=== PATIENT | female | born 1940 | race Caucasian/White ===

== ENCOUNTER 2018-07-28 10:57 | Inpatient (IN) | payer MEDICARE, BC ==
[2018-07-28 11:51] LABS: #Lymphocytes 0.6 thou/uL (1.20-3.40); #Monocytes 0.4 thou/uL (0.11-0.59); #Neutrophils 5.7 thou/uL (1.40-6.50); %Basophils 0.4 % (0.0-1.0); %Eosinophils 0.1 % (0.0-10.0); %Lymphocytes 8.9 % (21.0-51.0); %Monocytes 6.3 % (0.0-10.0); %Neutrophils 84.3 % (42.0-75.0); Hemoglobin 12.5 g/dL (12.0-16.0); Mean Corpuscular HGB CONC 32.7 g/dL (32.0-36.0); Mean Corpuscular Hemoglobin 30.1 pg (27.0-31.0); Mean Corpuscular Volume 92.1 fL (78.0-98.0); Mean Platelet Volume 8.5 fL (7.4-10.4); Platelet Count 194 thou/uL (130-400); RBC Distribution Width 13.4 % (11.5-14.5); Red Blood Cell (RBC) Count 4.14 mill/uL (4.20-5.40); White Blood Cell (WBC) Count 6.7 thou/uL (4.8-10.8)
[2018-07-28] MEDS ORDERED: Magnesium 2 GM/50 ML BAG (IN WATER) ONE (11:56)
[2018-07-28] MEDS ORDERED: methylPREDNISolone Sod Succ/PF 125 MG/2 ML VIAL ONE (11:56)
[2018-07-28] MEDS ORDERED: Metoprolol Tartrate 5 MG/5 ML VIAL ONE (11:57)
[2018-07-28 12:15] LABS: ALT (SGPT) 18 U/L (8-55); AST (SGOT) 24 U/L (5-34); Albumin 4.2 g/dL (3.4-4.8); Alkaline Phosphatase 70 U/L (40-150); Anion Gap 20 mmol/L (10-20); BUN (Urea Nitrogen) 18 mg/dL (9.8-20.1); Bilirubin, Total 1.1 mg/dL (0.2-1.2); Calc. Creatinine Clearance 0 mL/min (70-130); Calcium 9.4 mg/dL (7.8-10.44); Carbon Dioxide 21 mmol/L (23-31); Chloride 107 mmol/L (98-107); Estimated GFR-MDRD 61; Globulin 3.4 g/dL (2.4-3.5); Potassium 3.5 mmol/L (3.5-5.1); Protein, Total 7.6 g/dL (6.0-8.3); Sodium 144 mmol/L (136-145)
--- NOTE | 2018-07-28 12:17 | RAD ---
CHEST 1 VIEW: Date: 07/28/18 HISTORY: Cough. COMPARISON: Chest radiograph dated 10/24/17. FINDINGS: Heart size is enlarged. No pneumothorax. No effusion. No acute osseous abnormality. IMPRESSION: Mild cardiomegaly. POS: CET
[2018-07-28 12:27] LABS: Glucose 41 mg/dL (83-110)
[2018-07-28 12:39] LABS: INR-International Normal Ratio 2.6; PTT 43.4 SEC (22.9-36.1); Prothrombin Time 28.3 SEC (12.0-14.7)
[2018-07-28 14:06] LABS: Bilirubin Negative (Negative); Blood, Urine Trace (Negative); Clarity CLEAR (Clear); Glucose, Urine (Dipstick) Negative (Negative); Leukocyte Moderate (Negative); Nitrite Positive (Negative); Protein, Urine (Dipstick) Negative (Neg-Trace); Specific Gravity, Urine 1.008 (1.002-1.036); Urobilinogen 0.2 mg/dL (0.2-1.0); pH, Urine 5.5 (5.0-9.0)
[2018-07-28 14:08] LABS: Bacteria/HPF Rare-Few HPF (None Seen); Hyaline Casts/LPF 0-3 HYALINE CAST LPF (0-3 Hyaline); Pathc Cast-AUWi Flag 0.27 (0-2.49); RBC/HPF 0-3 HPF (0-3); Squamous Epithelial None Seen HPF (0-3); WBC/HPF 21-50 HPF (0-3)
[2018-07-28] MEDS ORDERED: cefTRIAXone\\ROCEPHIN 2 GM VIAL ONE (14:27)
[2018-07-28] MEDS ORDERED: Dextrose 50% Abboject 50 ML SYRINGE ONE (16:42)
[2018-07-28 18:00] VITALS: BMI 25.0
[2018-07-28] MEDS ORDERED: Ondansetron PF 4 MG/2 ML Vial IVP PRN (18:03)
[2018-07-28] MEDS ORDERED: Dextrose 5% in Water 1,000 ML IV PRN (18:03)
[2018-07-28] MEDS ORDERED: Dextrose 50% Abboject 50 ML SYRINGE SLOW IVP PRN (18:03)
[2018-07-28 18:35] LABS: Troponin I 0.014 ng/mL (< 0.028)
[2018-07-28] MEDS: Azithromycin 500 MG in Sodium Chloride 0.9% 250 ML 250 ML IVPB SCH (18:41)
[2018-07-28] MEDS: Diltiazem 125 MG in Sodium Chloride 0.9% 100 ML IVPB SCH (18:45)
[2018-07-28] MEDS: guaiFENesin/DM ER PO SCH (20:15)
[2018-07-28] MEDS ORDERED: Pantoprazole 40 MG VIAL IVP SCH (21:00)
[2018-07-28] MEDS ORDERED: Atorvastatin Calcium 40 MG TAB PO SCH (21:00)
[2018-07-28 21:26] LABS: Troponin I 0.018 ng/mL (< 0.028)
[2018-07-28] MEDS: methylPREDNISolone Sod Succ 40 MG VIAL IVP SCH (22:46)
--- NOTE | 2018-07-29 00:49 | HP ---
PRIMARY CARE PHYSICIAN: Dr. Young. CHIEF COMPLAINT: Cough and shortness of breath. HISTORY OF PRESENT ILLNESS: Mrs. Nava is a pleasant 78-year-old female with past medical history of atrial fibrillation, hypertension, diabetes mellitus type 2, and chronic obstructive pulmonary disease, who had presented to [facility] earlier today with cough and shortness of breath that has been going on for the last 2 weeks, she states her shortness of breath worsened earlier today and had caused her to come in to get further worked up. She had reported coughing up yellow sputum for the last 2 weeks and had reported some mild pleuritic chest pain, worse with deep breathing and coughing. She denied any fever or chills. She reports history of atrial fibrillation and was found to have rates in the 140s and 150s, she was given 20 mg of IV Cardizem in the emergency department along with IV 5 mg of metoprolol, which had improved symptoms, rate had improved in the 90s. Chest x-ray was obtained and found cardiomegaly, however, no pneumothorax, effusion, or acute osseous abnormality was demonstrated. The patient had also complained of urinary frequency, urgency, and some mild dysuria. Therefore, urinalysis was obtained and displayed 21 to 50 wbc's, moderate leukocyte esterase, and positive nitrites, she was started on IV 2 mg ceftriaxone. She was noticed to have diffuse wheezing on exam, therefore, was given nebulizer treatment along with an IV Solu-Medrol 125 mg and magnesium sulfate 2 g. She had tolerated this well. 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 Gann in about 3 years. She reports a history of atrial fibrillation and cardioversion in the past. However, does not remember when, she also denies any recent cardiac workup and has denied any recent echocardiogram. She was unable to tell me if she has a history of heart failure; however, she does report a "leaky valve." It was determined the patient will be admitted for further workup and management of her symptoms. REVIEW OF SYSTEMS: All other systems reviewed and found to be negative unless mentioned in the HPI. PAST MEDICAL HISTORY: Atrial fibrillation, hypertension, diabetes mellitus type 2, and COPD. PAST SURGICAL HISTORY: Tumor removed from right hip and left breast, hysterectomy, and surgical removal of adhesions. PSYCHIATRIC HISTORY: None. SOCIAL HISTORY: Denies any alcohol, tobacco, or illicit drug use. KNOWN ALLERGIES: Ciprofloxacin, Eliquis, furosemide, losartan, and Protonix. CURRENT HOME MEDICATIONS: 1. Warfarin 2 mg oral daily. 2. Glipizide 5 mg oral daily. 3. Torsemide 20 mg oral daily. 4. Simvastatin 40 mg oral daily. 5. Metoprolol succinate 50 mg oral daily. 6. Irbesartan 300 mg oral daily. PHYSICAL EXAMINATION: VITAL SIGNS: Blood pressure 134/97, pulse 118, respirations 20, temperature 97.9 degrees Fahrenheit, and O2 saturations 92% on room air. GENERAL: The patient is awake, alert, and oriented x3, mild acute distress noted due to shortness of breath. HEENT: Atraumatic and normocephalic. Pupils are round and reactive to light. Extraocular muscles intact. Moist mucous membranes noted. Oropharynx is clear without exudates or erythema. CARDIOVASCULAR: Positive S1, S2. Irregularly irregular rhythm measuring 120s on the monitor. RESPIRATORY: Bilateral expiratory wheezing noted with normal chest wall expansion and percussion. ABDOMEN: Soft, nontender. Bowel sounds present. Nondistended. BACK: Normal range of motion. Nontender. No CVA tenderness. GENITOURINARY: Positive suprapubic tenderness noted. MUSCULOSKELETAL: Strength 5+ bilaterally in upper and lower extremities. Moves all extremities equal. 2+ edema noted in lower extremities. NEUROLOGIC: Cranial nerves 2 through 12 grossly intact. No focal deficits noted. Speech intact and normal. Gait not assessed. SKIN: Warm, dry, and intact. No lesions. No rashes. PSYCHIATRIC: Good mood and affect. LABORATORY DATA: WBC 6.7, RBC 4.14, hemoglobin 12.5, and platelets 194. Sodium 144, potassium 3.5, anion gap 20, BUN 18, creatinine 0.90, estimated GFR 61, glucose 268, lactic acid 1.8, and magnesium 2.0. Troponin 0.018. Lipase 36. Urinalysis showing 21 to 50 wbc's, moderate leukocyte esterase, positive nitrites, trace blood. DIAGNOSTIC IMAGING: Chest x-ray reviewed and showing mild cardiomegaly with no pneumothorax, no effusion, and no acute osseous abnormality demonstrated. ASSESSMENT/PLAN: 1. Acute exacerbation of chronic obstructive pulmonary disease, started on IV ceftriaxone and IV azithromycin, DuoNebs ordered along with IV Solu-Medrol 40 mg q.6 hours. Added guaifenesin DM for her cough. 2. Atrial fibrillation with rapid ventricular response, continue the patient's home dose of warfarin 2 mg daily for further anticoagulation, also start Cardizem drip at 5 mg/hour and consult Cardiology Services. 3. Hypertension. The patient will be continued on her home regimen at this time. 4. Diabetes mellitus. Continue on insulin sliding scale at this time with frequent Accu-Cheks. The patient will be placed on a consistent carb diet. 5. Urinary tract infection. Await urine culture results along with blood cultures. As above, she will be started on IV antibiotics including ceftriaxone and azithromycin. 6. Deep venous thrombosis and gastrointestinal prophylaxis. 7. Code status, full code. 8. Surrogate decision maker is her daughter and her spouse. 9. Disposition pending further workup and clinical findings. Job ID: [id number]
[2018-07-29] MEDS: methylPREDNISolone Sod Succ 40 MG VIAL IVP SCH ×4 (05:34→17:08)
[2018-07-29] MEDS: HumaLOG 300 UNITS/3 ML VIAL SC PRN ×4 (05:35→20:31)
[2018-07-29 05:46] LABS: #Lymphocytes 0.6 thou/uL (1.20-3.40); #Monocytes 0.2 thou/uL (0.11-0.59); #Neutrophils 5.7 thou/uL (1.40-6.50); %Basophils 0.4 % (0.0-1.0); %Eosinophils 0.2 % (0.0-10.0); %Lymphocytes 9.7 % (21.0-51.0); %Monocytes 2.6 % (0.0-10.0); %Neutrophils 87.1 % (42.0-75.0); Hemoglobin 11.3 g/dL (12.0-16.0); Mean Corpuscular HGB CONC 32.3 g/dL (32.0-36.0); Mean Corpuscular Hemoglobin 29.8 pg (27.0-31.0); Mean Corpuscular Volume 92.5 fL (78.0-98.0); Mean Platelet Volume 9.1 fL (7.4-10.4); Platelet Count 172 thou/uL (130-400); RBC Distribution Width 13.6 % (11.5-14.5); White Blood Cell (WBC) Count 6.5 thou/uL (4.8-10.8)
[2018-07-29 06:04] LABS: Anion Gap 16 mmol/L (10-20); BUN (Urea Nitrogen) 26 mg/dL (9.8-20.1); Calc. Creatinine Clearance 45 mL/min (70-130); Calcium 8.9 mg/dL (7.8-10.44); Carbon Dioxide 21 mmol/L (23-31); Chloride 102 mmol/L (98-107); Estimated GFR-MDRD 51; Glucose 295 mg/dL (83-110); Potassium 3.8 mmol/L (3.5-5.1); Sodium 135 mmol/L (136-145)
[2018-07-29] MEDS: guaiFENesin/DM ER PO SCH ×2 (08:02→20:31)
[2018-07-29] MEDS: Torsemide 20 MG TAB PO SCH ×2 (09:18→09:47)
[2018-07-29] MEDS ORDERED: Dextrose 5% in Water 1,000 ML IV PRN (11:32)
[2018-07-29] MEDS ORDERED: Dextrose 50% Abboject 50 ML SYRINGE SLOW IVP PRN (11:32)
[2018-07-29] MEDS: cefTRIAXone\\ROCEPHIN 2 GM in Sodium Chloride 0.9% 100 ML IVPB SCH (14:03)
[2018-07-29] MEDS: Azithromycin 500 MG in Sodium Chloride 0.9% 250 ML 250 ML IVPB SCH (15:20)
[2018-07-29] MEDS: Diltiazem 125 MG in Sodium Chloride 0.9% 100 ML IVPB SCH (15:44)
--- NOTE | 2018-07-29 15:45 | CON ---
DATE OF CONSULTATION: REASON FOR CONSULTATION: Atrial fibrillation with RVR. HISTORY OF PRESENT ILLNESS: Ms. Nava is a 78-year-old woman, who primarily gets her cardiac care in [place], she though states she has not been seen by her tariff counsel in three years. She has a previous history of chronic atrial fibrillation and is currently on chronic Coumadin. She manages her Coumadin levels at home. Her main complaint today was cough and shortness of breath. She was seen in the [facility], where her heart rate was in the 140s to 150s. Her heart rate does appear improved, but she is currently on IV Cardizem. No chest pain, pressure, or other associated symptoms noted. PAST MEDICAL HISTORY: As above including hypertension, diabetes mellitus, previous COPD, hysterectomy, breast surgery, and hip surgery. HOME MEDICATIONS: Include; 1. Glipizide. 2. Coumadin. 3. Torsemide. 4. Simvastatin. 5. Metoprolol. 6. Irbesartan. REVIEW OF SYSTEMS: Ten-point review of systems is reviewed as above, otherwise negative. PHYSICAL EXAMINATION: GENERAL: Patient is a pleasant female, who is in no acute distress. The patient appears their stated age. VITAL SIGNS: Blood pressure 130/64, pulse 110, and temperature 97.7. NEUROLOGIC: The patient is alert and oriented x3 with no focal neurologic deficits. HEENT: Sclerae without icterus. Mouth has moist mucous membranes with normal pallor. NECK: No JVD. Carotid upstroke brisk. No bruits bilaterally. LUNGS: Clear to auscultation with unlabored respirations. BACK: No scoliosis or kyphosis. CARDIAC: Irregularly irregular. ABDOMEN: Soft, nontender, nondistended. No peritoneal signs present. No hepatosplenomegaly. No abnormal striae. EXTREMITIES: 2+ femoral and 2+ dorsalis pedis pulses. No cyanosis, clubbing, or edema. SKIN: No gross abnormalities. PERTINENT LABORATORY DATA: Creatinine 1.04. Troponin negative. Hemoglobin 11.3. IMPRESSION: 1. Atrial fibrillation with rapid ventricular response. 2. Chronic obstructive pulmonary disease. 3. Diabetes mellitus. 4. Hypertension. RECOMMENDATIONS: 1. Continue IV Cardizem. 2. Add p.o. Cardizem 60 mg q.6 hours and we will try and titrate down her IV Cardizem. 3. Can add digoxin if needed. 4. Review her echo. Job ID: [id number]
[2018-07-29] MEDS: Warfarin Sodium 2 MG TAB PO SCH (15:47)
--- NOTE | 2018-07-29 17:13 | PDOC.PN ---
- Subjective Encounter Start Date: 07/29/18 Encounter Start Time: 17:12 Patient sitting up in bed this morning. She reports cough improved along with shortness of breath, but HRs fluctuate in 60s to 130s. She remains on cardizem drip. She denies chest pain, palpitations or shortness of breath. Cardiology planning to add Cardizem 60 q6 - Objective Resuscitation Status - Order Detail: 07/28/18 18:03 Resuscitation Status Routine Co-Sign Provider: Resuscitation Status: FULL: Full Resuscitation MAR Reviewed: Yes Vital Signs & Weight: Vital Signs (12 hours) Temp Pulse Resp BP Pulse Ox 07/29/18 15:37 97.9 F 109 H 18 135/88 94 L 07/29/18 11:28 97.7 F 110 H 22 H 130/64 94 L 07/29/18 08:16 97.9 F 120 H 16 143/74 H 91 L Weight Weight 140 lb 8 oz I&O: 07/28/18 07/29/18 07/30/18 06:59 06:59 07:59 Intake Total 663.7 Output Total 350 1200 Balance 313.7 -1200 Result Diagrams: 07/29/18 05:27 07/29/18 05:27 Additional Labs: Accuchecks 07/29/18 07/29/18 07/28/18 10:40 05:27 21:11 POC Glucose 326 H 294 H 377 H 07/28/18 17:40 POC Glucose 313 H Radiology Reviewed by me: Yes Phys Exam - Physical Examination Constitutional: NAD HEENT: PERRLA, moist MMs, oral pharynx no lesions Neck: no nodes, supple Expiratory wheezing Cardiovascular: no significant murmur Irregular irregular Gastrointestinal: soft, non-tender, positive bowel sounds Musculoskeletal: no edema, pulses present Neurological: non-focal, moves all 4 limbs Lymphatic: no nodes Psychiatric: normal affect, A&O x 3 Skin: no rash, cap refill <2 seconds Dx/Plan (1) A-fib Code(s): I48.91 - UNSPECIFIED ATRIAL FIBRILLATION Status: Acute (2) COPD (chronic obstructive pulmonary disease) Status: Acute (3) UTI (urinary tract infection) Status: Acute (4) Hypertension Code(s): I10 - ESSENTIAL (PRIMARY) HYPERTENSION Status: Acute (5) Diabetes mellitus Code(s): E11.9 - TYPE 2 DIABETES MELLITUS WITHOUT COMPLICATIONS Status: Acute - Plan cont current plan of care, continue antibiotics, DVT proph w/lovenox * Continue IV abx, duonebs and IV steroids * Await culture results * Continue with IV cardizem drip, cardiology planning to add oral cardizem and titrate down drip * Monitor vitals and CBC, BMP * Continue tele monitoring * Adjustments pending patient progress
[2018-07-29] MEDS: Acetaminophen 325 MG TAB PO PRN (18:46)
[2018-07-29] MEDS: Ondansetron ODT 4 MG TAB PO PRN (18:46)
[2018-07-29] MEDS: Simvastatin 40 MG TAB PO SCH (20:31)
[2018-07-30] MEDS: methylPREDNISolone Sod Succ 40 MG VIAL IVP SCH ×4 (00:19→16:56)
[2018-07-30] MEDS: Acetaminophen 325 MG TAB PO PRN ×3 (05:28→20:38)
[2018-07-30] MEDS: HumaLOG 300 UNITS/3 ML VIAL SC PRN ×4 (06:26→20:38)
[2018-07-30] MEDS ORDERED: Diltiazem 125 MG in Sodium Chloride 0.9% 100 ML IVPB SCH (07:49)
[2018-07-30] MEDS: guaiFENesin/DM ER PO SCH ×2 (08:29→20:23)
[2018-07-30] MEDS: Torsemide 20 MG TAB PO SCH (08:29)
--- NOTE | 2018-07-30 13:17 | PDOC.CTH ---
Cardiology Progress Note - Subjective rate-controlled. No complaints today. Patient still SOB. Pleuritic CP to right side. - Objective Vital Signs Temp Pulse Resp BP Pulse Ox 07/30/18 12:00 97.7 F 88 20 139/69 94 L 07/30/18 08:24 97.5 F L 86 18 125/73 95 Weight 140 lb 8 oz 07/29/18 07/30/18 07/31/18 05:59 06:59 06:59 Intake Total 558.5 Output Total 400 Balance 158.5 - Physical Examination General/Neuro: alert & oriented x3 Neck: no JVD present Lungs: other: (Tight. No wheeze) Heart: other: (IRR) Abdomen: NT/ND - Telemetry Telemetry Rhythm: AF - Labs Result Diagrams: 07/29/18 05:27 07/29/18 05:27 Troponin/CKMB Troponin I 0.018 ng/mL (< 0.028) 07/28/18 20:47 - Assessment/Plan 1. Chronic AF 2. Severe MR 3. HTN 4. DM-II 5. UTI 6. COPD exacerbation Rate-controlled. INR therapeutic on coumadin. Will continue to wean cardizem.
[2018-07-30] MEDS: Ondansetron ODT 4 MG TAB PO PRN (14:22)
[2018-07-30] MEDS: cefTRIAXone\\ROCEPHIN 2 GM in Sodium Chloride 0.9% 100 ML IVPB SCH (14:22)
[2018-07-30] MEDS: Azithromycin 500 MG in Sodium Chloride 0.9% 250 ML 250 ML IVPB SCH (15:38)
[2018-07-30] MEDS: Warfarin Sodium 2 MG TAB PO SCH (16:30)
--- NOTE | 2018-07-30 17:15 | PDOC.PN ---
- Subjective Encounter Start Date: 07/30/18 Encounter Start Time: 17:11 Patient reports persistent cough and wheeze, with mild shortness of breath and pleuritic chest discomfort on right side. She denies palpitations, abdominal pain, nausea or vomiting. - Objective Resuscitation Status - Order Detail: 07/28/18 18:03 Resuscitation Status Routine Co-Sign Provider: Resuscitation Status: FULL: Full Resuscitation MAR Reviewed: Yes Vital Signs & Weight: Vital Signs (12 hours) Temp Pulse Resp BP Pulse Ox 07/30/18 16:10 97.5 F L 100 22 H 139/75 92 L 07/30/18 12:00 97.7 F 88 20 139/69 94 L 07/30/18 08:24 97.5 F L 86 18 125/73 95 Weight Weight 140 lb 8 oz I&O: 07/29/18 07/30/18 07/31/18 05:59 06:59 06:59 Intake Total 558.5 Output Total 400 Balance 158.5 Result Diagrams: 07/29/18 05:27 07/29/18 05:27 Additional Labs: Accuchecks 07/30/18 07/30/18 07/30/18 16:47 10:52 05:17 POC Glucose 308 H 309 H 221 H 07/29/18 07/29/18 20:31 17:04 POC Glucose 240 H 305 H Radiology Reviewed by me: Yes EKG Reviewed by me: Yes Phys Exam - Physical Examination Constitutional: NAD HEENT: PERRLA, moist MMs, oral pharynx no lesions Neck: no nodes, supple Expiratory wheezing heard throughout lung john Irregular irregular Gastrointestinal: soft, non-tender, positive bowel sounds Musculoskeletal: no edema, pulses present Neurological: non-focal, moves all 4 limbs Lymphatic: no nodes Psychiatric: normal affect, A&O x 3 Skin: no rash, cap refill <2 seconds Dx/Plan (1) A-fib Code(s): I48.91 - UNSPECIFIED ATRIAL FIBRILLATION Status: Acute Qualifiers: Atrial fibrillation type: chronic Qualified Code(s): I48.2 - Chronic atrial fibrillation (2) COPD (chronic obstructive pulmonary disease) Status: Acute Qualifiers: COPD type: COPD with acute exacerbation Qualified Code(s): J44.1 - Chronic obstructive pulmonary disease with (acute) exacerbation (3) UTI (urinary tract infection) Status: Acute Qualifiers: Encounter type: initial encounter (4) Hypertension Code(s): I10 - ESSENTIAL (PRIMARY) HYPERTENSION Status: Acute (5) Diabetes mellitus Code(s): E11.9 - TYPE 2 DIABETES MELLITUS WITHOUT COMPLICATIONS Status: Acute - Plan cont current plan of care, continue antibiotics * Continue medical management * Currently rate controlled with Cardizem, wean off drip * Cardiology services following * Urine culture showing e coli * D/C IV abx, transition to oral bactrim * D/C IV steroids and transition to oral prednisone * Encourage ambulation as tolerated * Monitor O2 wean oxygen as tolerated, she may require home o2 eval prior to discharge * Recheck chest xray in am
--- NOTE | 2018-07-30 17:26 | PRG ---
DATE OF SERVICE: 07/30/2018 SUBJECTIVE: The patient reports she has some discomfort in her right lateral chest and axillary area when she coughs. She believes it is a strained muscle from the coughing. She has not been up and around much, so she is not really able to tell where she is compared to her baseline. She says she usually does relatively well at rest, can mostly tell when she tries to get up and around. She reports that her PCP is Dr. Young in [place], but she does not have a millstone cleaner. She says she has had "MRIs" of her lungs in the past and was told that they were okay. OBJECTIVE: VITAL SIGNS: Temperature is 97.5, pulse 100, respirations 22, O2 saturations 92% on nasal cannula. GENERAL APPEARANCE: Age-appropriate female. She is sitting up in bed and speaking mostly in full sentences without nasal cannula, but does appear to be still slightly tachypneic. HEART: Irregular with no murmur. LUNGS: Have scattered rales with significantly diminished air movement throughout. ABDOMEN: Benign. EXTREMITIES: Have no edema. LABORATORY DATA: Urine micro shows E. coli. Blood sugars are running high. IMPRESSION AND PLAN: 1. Atrial fibrillation with rapid ventricular response. She appears to be off Cardizem drip with a heart rate in the 80s presently. She is on p.o. Cardizem and she is on warfarin for anticoagulation. 2. Acute on chronic hypoxic respiratory failure secondary to apparent chronic obstructive pulmonary disease exacerbation. Her chest x-ray only showed mild cardiomegaly without evidence of specific infiltrate. She continues on steroids , DuoNeb, and antibiotics, which can likely be converted over to oral. 3. Chronic obstructive pulmonary disease. The patient has chronic lung disease, suspected chronic obstructive pulmonary disease. Her echo suggests significant pulmonary hypertension. She says she has had imaging in the past and she certainly deserves at least CT scanning, but if she has already had that done elsewhere, I would like to defer that to her PCP if we can get her better. 4. Diabetes mellitus, poorly controlled. Numbers are significantly elevated because of her steroids. We will resume her oral glipizide. 5. Hypertension, well controlled. 6. UTI - E. coli. Oral bactrim should suffice. Job ID: [id number] [facility]
[2018-07-30] MEDS: Sulfameth/Trimethoprim DS 800-160mg TAB PO SCH (20:21)
[2018-07-30] MEDS: Simvastatin 40 MG TAB PO SCH (20:22)
[2018-07-30] MEDS: Benzonatate 100 MG CAP PO PRN (23:07)
[2018-07-31] MEDS ORDERED: Ipratropium Bromide 2.5 ml Neb NEB PRN (04:23)
[2018-07-31] MEDS ORDERED: methylPREDNISolone Sod Succ 40 MG VIAL IVP SCH (04:30)
[2018-07-31] MEDS: Acetaminophen 325 MG TAB PO PRN (05:22)
[2018-07-31 05:33] LABS: Prothrombin Time 40.3 SEC (12.0-14.7)
[2018-07-31 05:34] LABS: INR-International Normal Ratio 4.2
[2018-07-31 05:53] LABS: Anion Gap 17 mmol/L (10-20); BUN (Urea Nitrogen) 49 mg/dL (9.8-20.1); Calc. Creatinine Clearance 30 mL/min (70-130); Calcium 8.9 mg/dL (7.8-10.44); Carbon Dioxide 24 mmol/L (23-31); Chloride 101 mmol/L (98-107); Estimated GFR-MDRD 32; Glucose 274 mg/dL (83-110); Magnesium 2.5 mg/dL (1.6-2.6); Potassium 3.6 mmol/L (3.5-5.1); Sodium 138 mmol/L (136-145)
[2018-07-31] MEDS: HumaLOG 300 UNITS/3 ML VIAL SC PRN ×4 (06:03→21:38)
[2018-07-31] MEDS: Sulfameth/Trimethoprim DS 800-160mg TAB PO SCH ×2 (08:18→20:31)
[2018-07-31] MEDS: predniSONE 20 MG TAB PO SCH (08:18)
[2018-07-31] MEDS: guaiFENesin/DM ER PO SCH ×2 (08:18→20:34)
[2018-07-31] MEDS: Torsemide 20 MG TAB PO SCH (08:19)
[2018-07-31] MEDS: glipiZIDE 5 MG TAB PO SCH (08:19)
--- NOTE | 2018-07-31 08:54 | PDOC.CTH ---
Cardiology Progress Note - Subjective Patient with c/o worsened cough and wheeze. - Objective Vital Signs Temp Pulse Resp BP Pulse Ox 07/31/18 08:05 97.7 F 115 H 20 144/73 H 98 07/31/18 05:54 113 H 20 145/69 H 96 07/31/18 04:39 134 H 24 H 07/31/18 04:03 91 20 94 L 07/31/18 03:58 97.7 F 109 H 23 H 131/89 93 L 07/30/18 23:07 97.9 F 94 24 H 122/62 95 Weight 143 lb 9.6 oz 07/30/18 07/31/18 08/01/18 06:59 06:59 06:59 Intake Total 2258.5 Output Total 2150 Balance 108.5 - Physical Examination General/Neuro: alert & oriented x3 Neck: no JVD present Lungs: other: (bilateral rhonchi/exp wheeze) Heart: other: (IRR) - Telemetry Telemetry Rhythm: AF, some RVR - Labs Result Diagrams: 07/29/18 05:27 07/31/18 04:39 Troponin/CKMB Troponin I 0.018 ng/mL (< 0.028) 07/28/18 20:47 - Assessment/Plan 1. Chronic AF 2. Severe MR 3. HTN 4. DM-II 5. UTI 6. COPD exacerbation Increased RVR off gtt. PO diltiazem increased today. Needs CXR repeated. Ordered. Continue steroids/nebs. Pt seen and examined. Doing well. Given chronic afib, ok to transfer to medical. She would like to establish a mill tender in the area. Plan is to fu with me in the next 2-3 weeks. I will be out of office this week. Please reconsult if needed.
--- NOTE | 2018-07-31 11:01 | RAD ---
CHEST TWO VIEWS: HISTORY: Shortness of breath. COMPARISON: Radiograph from 07/28/2018. FINDINGS: Heart size continues to be enlarged. No focal confluent air space consolidation, pneumothorax, or ef fusion. No acute osseous abnormality. IMPRESSION: Cardiomegaly; otherwise, unremarkable examination. POS: CET
--- NOTE | 2018-07-31 18:58 | PRG ---
DATE OF SERVICE: 07/31/2018 SUBJECTIVE: Ms. Pau Nava is a pleasant 78-year-old female with past medical history significant for chronic atrial fibrillation, hypertension, type 2 diabetes mellitus, and COPD, who presented to the hospital with worsening shortness of breath and cough for the past 2 weeks. She has been admitted with atrial fibrillation with RVR along with COPD exacerbation. This morning, she denies any chest pain or palpitations. She continues to complain of cough and some shortness of breath. She denies any nausea or vomiting. OBJECTIVE: VITAL SIGNS: BP 137/68, O2 saturation 94% on 2 L nasal cannula, pulse 107, temp 97.5. GENERAL: Well-appearing female, sitting up in bed, in no acute distress. NECK: No JVD. No carotid bruit, no lymphadenopathy. CV: S1, S2, irregularly irregular, mildly tachycardic, no appreciable murmurs, rubs, or gallops. LUNGS: Regular respiratory rate and pattern, overall decreased vesicular breath sounds bilaterally with occasional expiratory wheeze present. ABDOMEN: Soft, positive bowel sounds, nontender. EXTREMITIES: No edema. SKIN: No rashes or lesions. NEUROLOGIC: Nonfocal. LABORATORY DATA: Labs from 07/29, white blood cells 6.5, hemoglobin 11.3, hematocrit 35.1. INR on 07/31 was 4.2. Chemistry: Sodium 138, potassium 3.6, BUN is 49, creatinine 1.58, and hemoglobin A1c 6.2%, that was 09/20/2017. Lactic acid 07/28/2018 was 1.8. ASSESSMENT: 1. Acute chronic obstructive pulmonary disease exacerbation, she continues to require oxygen and desats with ambulation into the 80s. Chronic atrial fibrillation with RVR. 2. Type 2 diabetes mellitus. 3. Urinary tract infection, culture positive for E colii 4. Supratherapeutic INR, likely secondary to abx PLAN: We will continue antibiotics for UTI, we will continue pulmonary toilet including p.r.n. breathing treatment. I suspect the patient will benefit from maintenance inhalers such as Symbicort. She will also need outpatient followup with a associate artistic director. The patient has failed her desat study, and we will arrange for home O2. Per Cardiology, her Cardizem was increased to 360 mg p.o. daily. We will continue to monitor her rate. We will also repeat INR tomorrow. Expect discharge tomorrow after home O2 has been arranged. Job ID: [id number] [facility]
[2018-07-31] MEDS: Simvastatin 40 MG TAB PO SCH (20:34)
[2018-07-31] MEDS ORDERED: Metoprolol Tartrate 25 MG TAB PO SCH (21:00)
[2018-07-31] MEDS: Benzonatate 100 MG CAP PO PRN (21:40)
[2018-08-01 05:18] LABS: #Lymphocytes 0.6 thou/uL (1.20-3.40); #Monocytes 0.4 thou/uL (0.11-0.59); #Neutrophils 11.1 thou/uL (1.40-6.50); %Eosinophils 0.1 % (0.0-10.0); %Monocytes 2.9 % (0.0-10.0); Hemoglobin 11.1 g/dL (12.0-16.0); Mean Corpuscular HGB CONC 32.5 g/dL (32.0-36.0); Mean Corpuscular Hemoglobin 29.6 pg (27.0-31.0); Mean Corpuscular Volume 91.1 fL (78.0-98.0); Mean Platelet Volume 8.4 fL (7.4-10.4); Platelet Count 203 thou/uL (130-400); RBC Distribution Width 13.5 % (11.5-14.5); Red Blood Cell (RBC) Count 3.76 mill/uL (4.20-5.40); White Blood Cell (WBC) Count 12.1 thou/uL (4.8-10.8)
[2018-08-01 05:21] LABS: Prothrombin Time 46.2 SEC (12.0-14.7)
[2018-08-01 05:36] LABS: Anion Gap 14 mmol/L (10-20); BUN (Urea Nitrogen) 35 mg/dL (9.8-20.1); Calc. Creatinine Clearance 41 mL/min (70-130); Calcium 8.8 mg/dL (7.8-10.44); Carbon Dioxide 27 mmol/L (23-31); Chloride 102 mmol/L (98-107); Estimated GFR-MDRD 44; Glucose 205 mg/dL (83-110); Potassium 3.8 mmol/L (3.5-5.1); Sodium 139 mmol/L (136-145)
[2018-08-01] MEDS: HumaLOG 300 UNITS/3 ML VIAL SC PRN ×4 (06:17→21:07)
[2018-08-01] MEDS: guaiFENesin/DM ER PO SCH ×2 (09:33→21:01)
[2018-08-01] MEDS: predniSONE 20 MG TAB PO SCH (09:33)
[2018-08-01] MEDS: glipiZIDE 5 MG TAB PO SCH (09:33)
[2018-08-01] MEDS: Sulfameth/Trimethoprim DS 800-160mg TAB PO SCH ×2 (09:34→21:02)
[2018-08-01] MEDS: Torsemide 20 MG TAB PO SCH (09:34)
[2018-08-01 11:48] LABS: Bilirubin Negative (Negative); Blood, Urine Negative (Negative); Clarity CLEAR (Clear); Glucose, Urine (Dipstick) Negative (Negative); Leukocyte Negative (Negative); Nitrite Negative (Negative); Protein, Urine (Dipstick) Negative (Neg-Trace); Specific Gravity, Urine 1.006 (1.002-1.036); Urobilinogen 0.2 mg/dL (0.2-1.0)
[2018-08-01 11:50] LABS: Bacteria/HPF None Seen HPF (None Seen); Hyaline Casts/LPF 0-3 HYALINE CAST LPF (0-3 Hyaline); RBC/HPF 0-3 HPF (0-3); Squamous Epithelial None Seen HPF (0-3); WBC/HPF None Seen HPF (0-3)
[2018-08-01 11:52] LABS: Urine Culture Reflex No No
--- NOTE | 2018-08-01 12:14 | PRG ---
DATE OF SERVICE: 08/01/2018 SUBJECTIVE: The patient reports that she is having some persistent cough. She believes it is related to some sinus drainage. She states she believes she would actually do better at home because she feels like she is just sitting here and coughing with this drainage, but she understands that things need to be addressed appropriately before that can happen. OBJECTIVE: VITAL SIGNS: Temperature is 98.0, pulse ranging from 84 to 135, respirations 20, O2 saturation 92% per nasal cannula, BP 186/85. GENERAL APPEARANCE: Age-appropriate female. She is in no distress. She is awake, alert, pleasant, cooperative, talkative. HEENT: PERRL. No acute lesions. HEART: Irregular without murmur. LUNGS: Still have diffusely diminished breath sounds with some inspiratory and expiratory wheezing. ABDOMEN: Soft, nontender, and nondistended. EXTREMITIES: No edema. PSYCH: The patient has appropriate affect and behavior. LABORATORY DATA: White count 12.1, hemoglobin 11.0, platelets 203. INR is 5.0. Sodium 139, potassium 3.8, chloride 102, BUN 35, creatinine is 1.19. IMPRESSION AND PLAN: 1. Acute on chronic hypoxic respiratory failure secondary to chronic obstructive pulmonary disease. The patient continues to have significant oxygen demands working on home oxygen. 2. Chronic obstructive pulmonary disease exacerbation. The patient continues to have significant evidence of airway disease with wheezing. She is still receiving nebulizer treatments and p.o. prednisone as well as Dulera. We will consult Pulmonology at this point, I attempted to call her PCP to find out what prior imaging she had had or what her history was as the patient continues to tell me that she has been told by her other doctors that her lungs are fine and that her imaging indicated her lungs were fine, however, I find that challenging. 3. Atrial fibrillation with highly variable rate. She is on high dose calcium channel gena and now beta blockers have been added and she is still not adequately fully rate controlled, likely partly being driven by some of the nebulizers. She is supratherapeutic on warfarin. 4. Supratherapeutic INR, possibly related to some interaction with the other medications including the antibiotics. I hope to be able to discontinue those entirely today. 5. Urinary tract infection with E. coli. I suspect she has had adequate treatment, we will recheck a UA today. If it is negative, we will discontinue all antibiotics. 6. Diabetes mellitus, adequate control. Job ID: [id number]
--- NOTE | 2018-08-01 13:56 | PDOC.CTH ---
Cardiology Progress Note - Subjective C/o progressive SOB. Feels like cough and breathing worse today. - Objective Vital Signs Temp Pulse Resp BP Pulse Ox 08/01/18 11:20 97.7 F 121 H 24 H 131/79 92 L 08/01/18 07:58 98.0 F 135 H 20 186/85 H 92 L 08/01/18 07:50 92 L 08/01/18 07:28 98 08/01/18 07:27 84 20 98 08/01/18 04:10 97.9 F 90 20 137/85 95 Weight 146 lb 07/31/18 08/01/18 08/02/18 06:59 06:59 06:59 Intake Total 2258.5 400 600 Output Total 2150 1275 800 Balance 108.5 -875 -200 - Physical Examination General/Neuro: alert & oriented x3, other: (lips pursed and bluer) Lungs: other: (bilateral wheeze; tight) Heart: other: (IRR, tachy) Abdomen: NT/ND - Telemetry Telemetry Rhythm: AF; rate 90s - Labs Result Diagrams: 08/01/18 04:35 08/01/18 04:35 Troponin/CKMB Troponin I 0.018 ng/mL (< 0.028) 07/28/18 20:47 - Assessment/Plan 1. Chronic AF 2. Severe MR 3. HTN 4. DM-II 5. UTI 6. COPD exacerbation Complaint of feeling more SOB and struggling. Pulmonary has been consulted. Will order ABG in the interim. RVR has improved. Stop Demadex. If it reoccurs or sustains I would add Dig. Otherwise hold coumdin with elevated INR.
[2018-08-01 15:34] LABS: Actual Bicarbonate (HCO3a) 26.9 mEq/L (22-28); Base Excess (BEa) 2.2 mEq/L (-2.0 to +3.0); Calcium, Ionized 1.08 mmol/L (1.12-1.30); Carboxyhemoglobin (COHb) 0.5 gm% (0.0-3.0); Hemoglobin (Hb) 11.3 g/dL (12.0-16.0); O2 Tension (PaO2) 77.5 mmHg (> 70.0); Potassium - ABG Lab 3.62 mmol/L (3.70-5.30); Puncture Site RB; pH, Arterial 7.42 (7.35-7.45)
[2018-08-01] MEDS: Mometasone/Formoterol 120 PUFF INHALER INH SCH (18:28)
[2018-08-01] MEDS ORDERED: Mometasone/Formoterol 120 PUFF INHALER INH SCH (18:30)
--- NOTE | 2018-08-01 18:39 | CON ---
DATE OF CONSULTATION: HISTORY OF PRESENT ILLNESS: Pau Nava is a 78-year-old female, lifelong nonsmoker, comes to the hospital after having multiple falls. She states she carries a diagnosis of COPD and never smoked. No history of pneumonia or asthma or TB. States she walks up a flight of stairs 4 times a day. She has been falling down several times. She has some kind of cardiac irregularity, atrial fibrillation, was seeing a doctor in [place]. She is now going to see a doctor locally here now. This morning, she denies any chest pain, chills, or sweats. She is on low-flow O2. PAST MEDICAL HISTORY: Atrial fibrillation, diabetes, hypertension, COPD. Nonsmoker. PAST SURGICAL HISTORY: Left breast biopsy, right hip surgery, hysterectomy, adhesions. CHRONIC MEDICATION: From home includes: 1. Demodex 20. 2. Zocor 40. 3. Metoprolol 50. 4. Irbesartan 300. 5. Glipizide 5. 6. Coumadin. 7. She is now started on Bactrim DS and prednisone neb treatments. ALLERGIES: MULTIPLE INCLUDING LOSARTAN, LASIX, CIPRO, ELIQUIS, PROTONIX. 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 PHYSICAL EXAMINATION: VITAL SIGNS: Sats are 92% on 2 L, pulse 135, atrial fibrillation, temperature 98, blood pressure 186/85. CHEST: Decreased breath sounds. No wheezing. CARDIAC: Normal S1, S2. No gallops. ABDOMEN: No masses. LABORATORY DATA: INR is 5. BNP is 205. Chest x-ray, hyperinflation. White count [id number]. I do not see any acute infiltrates. An echocardiogram was performed which shows evidence of markedly enlarged right atrium, severe mitral regurgitation. Severe tricuspid regurgitation, severe pulmonary artery hypertension. PLAN: Continue present treatment. Pulmonary function tests prior to discharge. We will follow. 0Consultation note, 70 minutes, 50% direct patient care. Job ID: [id number]
[2018-08-01] MEDS: Simvastatin 40 MG TAB PO SCH (21:01)
[2018-08-01] MEDS: Benzonatate 100 MG CAP PO PRN (21:02)
[2018-08-01] MEDS ORDERED: Digoxin 0.5 MG/2 ML AMP SLOW IVP SCH (22:30)
[2018-08-02] MEDS ORDERED: Digoxin 0.5 MG/2 ML AMP SLOW IVP SCH (04:00)
[2018-08-02 05:28] LABS: Prothrombin Time 41.1 SEC (12.0-14.7)
[2018-08-02 05:30] LABS: INR-International Normal Ratio 4.3
[2018-08-02] MEDS: Mometasone/Formoterol 120 PUFF INHALER INH SCH ×2 (06:48→19:20)
[2018-08-02] MEDS: guaiFENesin/DM ER PO SCH ×2 (08:21→20:19)
[2018-08-02] MEDS: Benzonatate 100 MG CAP PO PRN (08:22)
[2018-08-02] MEDS: glipiZIDE 5 MG TAB PO SCH (08:22)
[2018-08-02] MEDS: predniSONE 20 MG TAB PO SCH (08:22)
[2018-08-02] MEDS: Torsemide 20 MG TAB PO SCH (08:22)
[2018-08-02] MEDS: Acetaminophen 325 MG TAB PO PRN (08:25)
[2018-08-02] MEDS: Ondansetron ODT 4 MG TAB PO PRN (08:25)
--- NOTE | 2018-08-02 10:53 | PRG ---
DATE OF SERVICE: 08/02/2018 SUBJECTIVE: This morning, she is still coughing. She is still wheezing. She is short of breath. Awake, right-sided chest pain, probably musculoskeletal. OBJECTIVE: VITAL SIGNS: Temperature 98, pulse 96, respiratory rate 22, blood pressure 152/72, saturations of 93% on 2 L. CHEST: She has extensive wheezing, rhonchi. CARDIAC: Normal S1 and S2. No gallops. ABDOMEN: No masses. IMPRESSION: Chronic obstructive pulmonary disease, asthma, bronchitis. PLAN: Continue O2, neb treatments, steroids, Dulera. We will follow PFT prior to discharge. Job ID: [id number]
[2018-08-02] MEDS: HYDROcodone/Acetaminophen 5/325 mg Tablet PO PRN ×2 (11:22→20:19)
--- NOTE | 2018-08-02 17:19 | PRG ---
DATE OF SERVICE: SUBJECTIVE: The patient says she has strained a muscle in her right chest area, again from coughing. She did get some pain medicines and that is helping. States that she feels comfortable with her breathing as long as she is lying still, but still does not feel like she can get up and do much. She would be significantly short of breath again. OBJECTIVE: VITAL SIGNS: Temperature 97.7, pulse 89 to 110, respirations 22, O2 saturations 91% on 2 L, and BP 134/63. GENERAL APPEARANCE: Age-appropriate female, in no distress. She is awake, alert, oriented, pleasant, and cooperative. HEENT: PERRL. No OP lesions. NECK: Supple and symmetric. HEART: Irregular without murmur. LUNGS: Diminished; however, today there are no rales or significant wheezes noted on exam. ABDOMEN: Soft and nontender. EXTREMITIES: Warm and dry with no edema. LABORATORY DATA: INR is 4.3 and blood sugar 75 to 225. IMPRESSION AND PLAN: 1. Acute on chronic hypoxic respiratory failure. The patient has apparent chronic obstructive pulmonary disease with exacerbation as well as significant pulmonary hypertension, which may be related to the chronic obstructive pulmonary disease or other factors. She is on bronchodilators, steroids, mucolytics, and she actually is starting to sound better today. We will continue with the current plan. Pulmonology is following. 2. Chronic obstructive pulmonary disease exacerbation as above. 3. Atrial fibrillation with variable rate. She remains on calcium channel blockers and beta blockers and her rate is probably appropriate to her situation. 4. Supratherapeutic INR is coming down. Her Coumadin is being held. Antibiotics have been discontinued as her urinary tract infection is resolved. 5. Diabetes mellitus. Adequate control given the steroid situation. 6. Hypoglycemia on initial presentation is fully resolved. 7. Hypertension. Continue with the Avapro. 8. Hyperlipidemia. Continue with simvastatin. Job ID: [id number]
[2018-08-02] MEDS: HumaLOG 300 UNITS/3 ML VIAL SC PRN (17:27)
--- NOTE | 2018-08-02 18:46 | PDOC.CTH ---
Cardiology Progress Note - Subjective No new issues. No new complaints. - Objective Vital Signs Temp Pulse Resp BP BP Pulse Ox 08/02/18 17:53 98.2 F 117 H 20 142/69 H 91 L 08/02/18 16:10 98.4 F 107 H 20 129/69 95 08/02/18 14:01 105 H 24 H 08/02/18 11:55 97.7 F 89 22 H 134/63 91 L 08/02/18 10:34 110 H 20 95 08/02/18 08:00 93 L 08/02/18 07:57 98 F 97 22 H 155/72 H 93 L Weight 145 lb 8 oz 08/01/18 08/02/18 08/03/18 06:59 06:59 06:59 Intake Total 400 1900 Output Total 1275 2750 600 Balance -875 -850 -600 - Physical Examination General/Neuro: alert & oriented x3, NAD Neck: no JVD present Lungs: unlabored respirations Heart: other: (Irregular) Abdomen: NT/ND Extremities: other: (no edema) - Telemetry Telemetry Rhythm: Afib RH 90-120 - Labs Result Diagrams: 08/01/18 04:35 08/01/18 04:35 Troponin/CKMB Troponin I 0.018 ng/mL (< 0.028) 07/28/18 20:47 - Assessment/Plan 1. Chronic AF 2. Severe MR 3. HTN 4. DM-II 5. UTI 6. COPD exacerbation PLAn: - Continue rate control. - Continue to hold coumadin until INR under 3.
[2018-08-02] MEDS: Simvastatin 40 MG TAB PO SCH (20:19)
[2018-08-03 04:54] LABS: INR-International Normal Ratio 3.9; Prothrombin Time 38.4 SEC (12.0-14.7)
[2018-08-03] MEDS: Mometasone/Formoterol 120 PUFF INHALER INH SCH ×2 (06:50→18:07)
[2018-08-03] MEDS: HYDROcodone/Acetaminophen 5/325 mg Tablet PO PRN (09:01)
[2018-08-03] MEDS: guaiFENesin/DM ER PO SCH (09:03)
[2018-08-03] MEDS: predniSONE 20 MG TAB PO SCH (09:03)
[2018-08-03] MEDS: Torsemide 20 MG TAB PO SCH (09:04)
[2018-08-03] MEDS: glipiZIDE 5 MG TAB PO SCH (09:05)
--- NOTE | 2018-08-03 10:57 | PRG ---
DATE OF SERVICE: 08/03/2018 SUBJECTIVE: This morning, she says she is feeling better, less short of breath, less cough. PFT is still not done. OBJECTIVE: VITAL SIGNS: Saturations are 93 on 3 L, respiratory rate 20, temperature 98, pulse 90, blood pressure is 162/81. CHEST: Decreased breath sounds without any wheezing. CARDIAC: Normal S1 and S2. No gallops. ABDOMEN: No masses. IMPRESSION: Chronic obstructive pulmonary disease, asthma, coronary artery disease. PLAN: Await PFT. DISPOSITION: As per Surgery. Job ID: [id number]
[2018-08-03] MEDS: cefTRIAXone\\ROCEPHIN 1 GM in Sodium Chloride 0.9% 100 ML IVPB SCH (14:18)
--- NOTE | 2018-08-03 14:40 | PDOC.PN ---
- Subjective Encounter Start Date: 08/03/18 Encounter Start Time: 13:00 Patient seen and examined for Afib/COPE/UTI. No new complaints. No overnight events - Objective Resuscitation Status - Order Detail: 07/28/18 18:03 Resuscitation Status Routine Co-Sign Provider: Resuscitation Status: FULL: Full Resuscitation MAR Reviewed: Yes Vital Signs & Weight: Vital Signs (12 hours) Temp Pulse Resp BP Pulse Ox 08/03/18 14:07 96 16 97 08/03/18 11:38 97.9 F 93 20 147/66 H 94 L 08/03/18 10:22 114 H 20 97 08/03/18 08:05 98 F 90 20 162/81 H 94 L 08/03/18 06:53 20 98 08/03/18 06:50 104 H 16 99 08/03/18 04:00 98.3 F 90 20 159/72 H 94 L Weight Weight 145 lb 8 oz I&O: 08/02/18 08/03/18 08/04/18 06:59 06:59 06:59 Intake Total 1900 Output Total 2750 600 Balance -850 -600 Result Diagrams: 08/01/18 04:35 08/01/18 04:35 Additional Labs: Accuchecks 08/03/18 08/03/18 08/02/18 11:30 05:44 20:30 POC Glucose 96 101 192 H 08/02/18 17:19 POC Glucose 230 H EKG Reviewed by me: Yes (Tele Afib) Phys Exam - Physical Examination Constitutional: NAD Respiratory: no wheezing, no rhonchi Cardiovascular: no rub, irregular Gastrointestinal: soft, non-tender, positive bowel sounds Musculoskeletal: no edema Neurological: moves all 4 limbs Dx/Plan - Plan 1. Afib with RVR - rate controlled 2. UTI 3. Chronic anticoag - INR supratherapeutic 4. COPD exacerbation 5. DM2 6. HTN/Severe MR 7. Other issues per previus notes PLAN: Warfarin on hold AM labs Cont Steroids/Nebs Start IV Ceftriaxone for UTI Cont current meds as below DC in 24-[address] Gann follow Warfarin as outpt [facility] eval Home O2 assesment in AM Review of Systems - Review of Systems Constitutional: negative: fever, chills, sweats, weakness, malaise, other Respiratory: negative: Cough, Dry, Shortness of Breath, Hemoptysis, SOB with Excertion, Pleuritic Pain, Sputum, Wheezing Cardiovascular: negative: chest pain, palpitations, orthopnea, paroxysmal nocturnal dyspnea, edema, light headedness, other Gastrointestinal: negative: Nausea, Vomiting, Abdominal Pain, Diarrhea, Constipation, Melena, Hematochezia, Other - Medications/Allergies Allergies/Adverse Reactions: Allergies Allergy/AdvReac Type Severity Reaction Status Date / Time apixaban [From Eliquis] Allergy itching Verified 07/28/18 19:47 atorvastatin [From Lipitor] Allergy Verified 07/28/18 19:47 ciprofloxacin Allergy Verified 07/28/18 19:47 furosemide [From Lasix] Allergy Verified 07/28/18 19:47 losartan Allergy Verified 07/28/18 19:47 pantoprazole [From Protonix] Allergy Verified 07/28/18 19:47 Medications: Current Medications Acetaminophen (Tylenol) 650 mg PO Q4H PRN PRN Reason: Headache/Fever/Mild Pain (1-3) Last Admin: 08/02/18 08:25 Dose: 650 mg Hydrocodone Bitart/Acetaminophen ([place] 5/325) 1 tab PO Q4H PRN PRN Reason: Moderate Pain (4-6) Last Admin: 08/03/18 09:01 Dose: 1 tab Albuterol/Ipratropium (Duoneb) 3 ml NEB [id number] SCH Last Admin: 08/03/18 14:07 Dose: 3 ml Benzonatate (Tessalon) 100 mg PO TIDPRN PRN PRN Reason: Cough Last Admin: 08/02/18 08:22 Dose: 100 mg Dextrose/Water (Dextrose 50%) 25 gm SLOW IVP PRN PRN PRN Reason: Hypoglycemia Diltiazem HCl (Cardizem Cd) 360 mg PO DAILY [facility] Last Admin: 08/03/18 09:03 Dose: 360 mg Glipizide (Glucotrol) 5 mg PO DAILY [facility] Last Admin: 08/03/18 09:05 Dose: 5 mg Glucagon (Glucagon) 1 mg IM PRN PRN PRN Reason: Hypoglycemia Guaifenesin/Dextromethorphan (Mucinex Dm) 2 tab PO Q12HR [facility] Last Admin: 08/03/18 09:03 Dose: 2 tab Dextrose/Water (D5w) 1,000 mls @ 0 mls/hr IV .Q0M PRN PRN Reason: Hypoglycemia Ceftriaxone Sodium 1 gm/ (Sodium Chloride) 100 mls @ 200 mls/hr IVPB 1300 [facility] Last Admin: 08/03/18 14:18 Dose: 100 mls Insulin Human Lispro (Humalog) 0 units SC .BEDTIME SLIDING SC PRN PRN Reason: Bedtime Correctional Scale Last Admin: 08/02/18 17:27 Dose: 2 unit Insulin Human Lispro (Humalog) 0 units SC .MODERATE SLIDING SC PRN PRN Reason: Moderate Correctional Scale Last Admin: 08/01/18 16:59 Dose: 6 unit Ipratropium [place] (Atrovent) 2.5 ml NEB Q4H PRN PRN Reason: SOB &/or Wheezing Last Admin: 08/01/18 22:45 Dose: 2.5 ml Irbesartan (Avapro) 300 mg PO DAILY [facility] Last Admin: 08/03/18 09:04 Dose: 300 mg Miscellaneous Medication (Pharmacy To Dose) 1 each PO .WARFARIN [facility] Mometasone Furoate/Formoterol Fumar (Dulera 200 Mcg/5 Mcg Inhaler) 2 puff INH BID-RT [facility] Last Admin: 08/03/18 06:50 Dose: 2 puff Ondansetron HCl (Zofran Odt) 4 mg PO Q6H PRN PRN Reason: Nausea/Vomiting Last Admin: 08/02/18 08:25 Dose: 4 mg Ondansetron HCl (Zofran) 4 mg IVP Q6H PRN PRN Reason: Nausea/Vomiting Prednisone (Prednisone) 40 mg PO QAM-WM [facility] Last Admin: 08/03/18 09:03 Dose: 40 mg Simvastatin (Zocor) 40 mg PO HS [facility] Last Admin: 08/02/18 20:19 Dose: 40 mg Torsemide (Demadex) 20 mg PO DAILY [facility] Last Admin: 08/03/18 09:04 Dose: 20 mg Warfarin Sodium (Coumadin) 2 mg PO 1700 [facility] Last Admin: 07/30/18 16:30 Dose: 2 mg
--- NOTE | 2018-08-03 17:35 | PDOC.CTH ---
Cardiology Progress Note - Subjective No new issues. No chest pain. Breathing close to baseline. - Objective Vital Signs Temp Pulse Resp BP Pulse Ox 08/03/18 15:10 98.2 F 91 20 149/69 H 95 08/03/18 14:07 96 16 97 08/03/18 11:38 97.9 F 93 20 147/66 H 94 L 08/03/18 10:22 114 H 20 97 08/03/18 08:05 98 F 90 20 162/81 H 94 L 08/03/18 06:53 20 98 08/03/18 06:50 104 H 16 99 Weight 145 lb 8 oz 08/02/18 08/03/18 08/04/18 06:59 06:59 06:59 Intake Total 1900 Output Total 2750 600 Balance -850 -600 - Physical Examination General/Neuro: alert & oriented x3, NAD Neck: no JVD present Lungs: unlabored respirations Heart: other: (Irreg irreg) Abdomen: NT/ND Extremities: other: (no edema) - Telemetry Telemetry Rhythm: Afib HR 80's. - Labs Result Diagrams: 08/01/18 04:35 08/01/18 04:35 Troponin/CKMB Troponin I 0.018 ng/mL (< 0.028) 07/28/18 20:47 - Assessment/Plan 1. Chronic AF, rate controlled. 2. Severe MR 3. HTN 4. DM-II 5. UTI 6. COPD exacerbation PLAn: - Continue rate control. - Continue to hold coumadin until INR under 3. - No new recs.
[2018-08-03] MEDS: HumaLOG 300 UNITS/3 ML VIAL SC PRN (18:11)
[2018-08-03] MEDS: Famotidine 20 MG TAB PO SCH (19:40)
[2018-08-03] MEDS: guaiFENesin ER 600 MG TAB PO SCH (19:40)
[2018-08-03] MEDS: Simvastatin 40 MG TAB PO SCH (19:40)
[2018-08-04 05:23] LABS: #Lymphocytes 0.9 thou/uL (1.20-3.40); #Monocytes 0.8 thou/uL (0.11-0.59); #Neutrophils 8.6 thou/uL (1.40-6.50); %Basophils 0.1 % (0.0-1.0); %Eosinophils 0.2 % (0.0-10.0); %Lymphocytes 8.9 % (21.0-51.0); %Monocytes 7.4 % (0.0-10.0); %Neutrophils 83.5 % (42.0-75.0); Hemoglobin 11.3 g/dL (12.0-16.0); Mean Corpuscular HGB CONC 32.9 g/dL (32.0-36.0); Mean Corpuscular Hemoglobin 30.6 pg (27.0-31.0); Mean Corpuscular Volume 92.9 fL (78.0-98.0); Mean Platelet Volume 7.8 fL (7.4-10.4); Platelet Count 203 thou/uL (130-400); Red Blood Cell (RBC) Count 3.68 mill/uL (4.20-5.40); White Blood Cell (WBC) Count 10.3 thou/uL (4.8-10.8)
[2018-08-04 05:25] LABS: INR-International Normal Ratio 3.2
[2018-08-04 05:41] LABS: BUN (Urea Nitrogen) 19 mg/dL (9.8-20.1); Calc. Creatinine Clearance 58 mL/min (70-130); Calcium 8.7 mg/dL (7.8-10.44); Estimated GFR-MDRD 66; Glucose 95 mg/dL (83-110); Magnesium 2.4 mg/dL (1.6-2.6)
[2018-08-04 05:49] LABS: Anion Gap 12 mmol/L (10-20); Carbon Dioxide 36 mmol/L (23-31); Chloride 97 mmol/L (98-107); Potassium 4.3 mmol/L (3.5-5.1); Sodium 141 mmol/L (136-145)
[2018-08-04] MEDS: Mometasone/Formoterol 120 PUFF INHALER INH SCH (07:04)
[2018-08-04] MEDS: HYDROcodone/Acetaminophen 5/325 mg Tablet PO PRN (08:40)
[2018-08-04] MEDS: Torsemide 20 MG TAB PO SCH (08:41)
[2018-08-04] MEDS: Famotidine 20 MG TAB PO SCH (08:41)
[2018-08-04] MEDS: guaiFENesin ER 600 MG TAB PO SCH (08:41)
[2018-08-04] MEDS: glipiZIDE 5 MG TAB PO SCH (08:41)
[2018-08-04] MEDS: predniSONE 20 MG TAB PO SCH (08:41)
--- NOTE | 2018-08-04 10:26 | PRG ---
DATE OF SERVICE: 08/04/2018 SUBJECTIVE: This morning, she is better. She is still coughing. Less short of breath. OBJECTIVE: VITAL SIGNS: Saturations are 90% on room air, respiratory rate 16, temperature 98, pulse 110, and blood pressure was 145/78. CHEST: Decreased breath sounds. Prolonged expiration. CARDIAC: Normal S1 and S2. No gallops. ABDOMEN: No masses. LABORATORY DATA: Lytes are normal. INR is 3.2. ASSESSMENT: 1. Urinary tract infection. 2. Chronic obstructive pulmonary disease, nonsmoker. 3. Diabetes. 4. Atrial fibrillation, controlled. PLAN: Unable to do PFT, tech not in town. Alpha-1 antitrypsin level has been ordered. She can be discharged home on present medication, tapering dose of steroids. Follow up in the office in about 2 to 3 weeks. Job ID: [id number]
[2018-08-04] MEDS: cefTRIAXone\\ROCEPHIN 1 GM in Sodium Chloride 0.9% 100 ML IVPB SCH (12:20)
[2018-08-04 15:42] VITALS: BP 131/68; TEMP 97.9
--- NOTE | 2018-08-04 16:55 | PDOC.CTH ---
Cardiology Progress Note - Subjective No new issues, breathing better. - Objective Vital Signs Temp Pulse Resp BP Pulse Ox 08/04/18 15:39 97.9 F 116 H 16 131/68 95 08/04/18 13:57 103 H 18 83 L 08/04/18 12:17 136 H 16 143/84 H 88 L 08/04/18 10:17 102 H 16 90 L 08/04/18 08:40 90 L 08/04/18 07:34 98.1 F 110 H 16 145/78 H 90 L 08/04/18 07:06 82 18 98 08/04/18 07:04 82 16 98 Weight 145 lb 8 oz 08/03/18 08/04/18 08/05/18 06:59 06:59 06:59 Intake Total 750 Output Total 600 200 Balance -600 550 - Physical Examination General/Neuro: alert & oriented x3, NAD Neck: no JVD present Lungs: CTA, unlabored respirations Heart: RRR Abdomen: NT/ND Extremities: other: (no edema.) - Telemetry Telemetry Rhythm: Afib HR 90's low 100's. - Labs Result Diagrams: 08/04/18 04:32 08/04/18 04:32 Troponin/CKMB Troponin I 0.018 ng/mL (< 0.028) 07/28/18 20:47 - Assessment/Plan 1. Chronic AF, rate controlled. 2. Severe MR 3. HTN 4. DM-II 5. UTI 6. COPD exacerbation PLAn: - Continue rate control. - Restart coumadin Tuesday evening. - May discharge home any time from cardiac perspective.
--- NOTE | 2018-08-05 09:16 | EKG ---
Test Reason : SOB Blood Pressure : / mmHG Vent. Rate : 144 BPM Atrial Rate : 174 BPM P-R Int : 000 ms QRS Dur : 070 ms QT Int : 314 ms P-R-T Axes : 000 090 -25 degrees QTc Int : 486 ms Atrial fibrillation with rapid ventricular response Rightward axis Septal infarct , age undetermined Abnormal ECG Confirmed by SAMMY DE JESUS ([id number]), news videotape editor COREY SINGH ([id number]) on 08/05/2018 9:15:55 AM Referred By: Confirmed By:SAMMY DE JESUS
--- NOTE | 2018-08-06 01:56 | DIS ---
DATE OF ADMISSION: 07/29/2018 DATE OF DISCHARGE: 08/04/2018 DISCHARGE DISPOSITION: Home with [facility]. DISCHARGE FOLLOWUP: 1. With primary care physician, Dr. Young in 1 week. 2. Follow up with Cardiology, Dr. Nielson and Pulmonary, Dr. Gallego in 1 to 2 weeks. ALLERGIES: ELIQUIS, LIPITOR, CIPROFLOXACIN, LASIX, LOSARTAN, AND PROTONIX. DISCHARGE INSTRUCTIONS: The patient was advised to follow up on alpha-1 antitrypsin level. DISCHARGE MEDICATIONS: 1. Prednisone taper. 2. Dulera 200 mcg/5 two puffs b.i.d. 3. Cardizem CD 180 mg b.i.d. 4. Mucinex twice daily for 1 week. 5. Coumadin as directed. 6. Torsemide 20 mg daily. 7. Zocor 40 mg daily. 8. Irbesartan 300 mg daily. 9. Glipizide 5 mg daily. INPATIENT CONSULTANTS: 1. Cardiology, Dr. Nielson. 2. Pulmonary Dr. Gallego. The patient was seen and examined on the day of discharge. Denies any new complaints. No chest pain, shortness of breath, or palpitations reported. BRIEF HOSPITAL COURSE: The patient is a 78-year-old female with atrial fibrillation, hypertension, diabetes mellitus type 2, and COPD, presented to the hospital on July 28, 2018, with cough and shortness of breath. A workup was consistent with atrial fibrillation with rapid ventricular response as well as COPD exacerbation. Please refer to the history and physical dated July 28, 2018, for further details. The patient was admitted to the hospital with the above diagnosis. She was started on steroids, nebulizer treatment along with Cardizem drip. She was seen by Cardiology as well as Pulmonology. Echocardiogram showed left ventricular ejection fraction of 50% to 55% with severe dilatation of the left atrium, severe mitral regurgitation, severe tricuspid regurgitation. She showed good improvement with the above measures. Cardizem has been changed to p.o. She was found to have supratherapeutic INR of 5.0 on August 01. INR on the day of discharge is 3.2. She will get the PT/INR checked tomorrow and warfarin can probably be started tomorrow evening. She has been cleared by consultants for discharge. She was seen and examined on the day of discharge. FINAL DIAGNOSES: 1. Atrial fibrillation with rapid ventricular response. 2. Chronic obstructive pulmonary disease exacerbation. 3. Urinary tract infection secondary to Escherichia coli. The patient completed antibiotics. 4. Chronic anticoagulation with supratherapeutic INR. 5. Hypertension. 6. Severe mitral regurgitation. 7. Severe tricuspid regurgitation. 8. Chronic anemia. 9. Chronic kidney disease, stage 2. 10. Hypoglycemia on admission, resolved. TIME SPENT: Total time coordinating the discharge of this patient was 37 minutes. Job ID: [id number]
== END 2018-08-04 18:37 | disposition home health service (06) | DRG 189 ==
LOC: ERS 10:57 → 2SW 15:11 → OBSVTOIN 07-29 17:32 → 2NO 08-02 17:47
PROVIDERS: ADMIT Internal Medicine; ATTEND Internal Medicine
DX: J96.21 Acute and chronic respiratory failure with hypoxia (principal); J44.1 Chronic obstructive pulmonary disease with (acute) exacerbation; N39.0 Urinary tract infection, site not specified; B96.20 Unspecified Escherichia coli [E. coli] as the cause of diseases classified elsewhere; I48.2 Chronic atrial fibrillation; R79.1 Abnormal coagulation profile; E11.649 Type 2 diabetes mellitus with hypoglycemia without coma; I08.1 Rheumatic disorders of both mitral and tricuspid valves; E11.22 Type 2 diabetes mellitus with diabetic chronic kidney disease; N18.2 Chronic kidney disease, stage 2 (mild); I12.9 Hypertensive chronic kidney disease with stage 1 through stage 4 chronic kidney disease, or unspecified chronic kidney disease; Z88.8 Allergy status to other drugs, medicaments and biological substances; Z90.710 Acquired absence of both cervix and uterus; Z79.01 Long term (current) use of anticoagulants; Z88.1 Allergy status to other antibiotic agents; E11.65 Type 2 diabetes mellitus with hyperglycemia; T38.0X5A Adverse effect of glucocorticoids and synthetic analogues, initial encounter; I25.10 Atherosclerotic heart disease of native coronary artery without angina pectoris; E78.5 Hyperlipidemia, unspecified; D63.1 Anemia in chronic kidney disease; I27.20 Pulmonary hypertension, unspecified; Z79.84 Long term (current) use of oral hypoglycemic drugs
CPT/HCPCS: 36415; 36416; 71045; 71046; 80048; 80053; 81001; 81003; 81015; 82103; 82805; 83605; 83690; 83735; 83880; 84484; 85025; 85610; 85730; 87040; 87077; 87086; 87186; 93005; 93306; 94640; 94760; 96365; 96367; 96374; 96375; J0456; J0696; J1160; J2920; J2930; J3475; J7050; J7620; Q0162

== ENCOUNTER 2019-03-07 09:14 | Outpatient (CLI) | payer MEDICARE, BC ==
[2019-03-07 15:31] LABS: #Eosinphils 0.1 thou/uL (0.0-0.7); #Monocytes 0.7 thou/uL (0.11-0.59); #Neutrophils 6.8 thou/uL (1.40-6.50); %Basophils 0.2 % (0.0-1.0); %Eosinophils 0.9 % (0.0-10.0); %Lymphocytes 20.8 % (21.0-51.0); %Monocytes 7.4 % (0.0-10.0); %Neutrophils 70.7 % (42.0-75.0); Hemoglobin 13.6 g/dL (12.0-16.0); Mean Corpuscular HGB CONC 33.5 g/dL (32.0-36.0); Mean Corpuscular Hemoglobin 29.4 pg (27.0-31.0); Mean Corpuscular Volume 87.7 fL (78.0-98.0); Mean Platelet Volume 8.8 fL (7.4-10.4); Platelet Count 241 thou/uL (130-400); RBC Distribution Width 13.1 % (11.5-14.5); Red Blood Cell (RBC) Count 4.62 mill/uL (4.20-5.40); White Blood Cell (WBC) Count 9.6 thou/uL (4.8-10.8)
[2019-03-07 15:53] LABS: ALT (SGPT) 16 U/L (8-55); AST (SGOT) 17 U/L (5-34); Albumin 4.7 g/dL (3.4-4.8); Alkaline Phosphatase 70 U/L (40-110); Anion Gap 17 mmol/L (10-20); BUN (Urea Nitrogen) 22 mg/dL (9.8-20.1); Bilirubin, Total 0.7 mg/dL (0.2-1.2); Calc. Creatinine Clearance 0 mL/min (70-130); Calcium 9.8 mg/dL (7.8-10.44); Carbon Dioxide 24 mmol/L (23-31); Chloride 105 mmol/L (98-107); Estimated GFR-MDRD 52; Globulin 3.3 g/dL (2.4-3.5); Potassium 3.9 mmol/L (3.5-5.1); Sodium 142 mmol/L (136-145)
[2019-03-07 15:57] LABS: Glucose 41 mg/dL (83-110)
== END 2019-03-07 09:15 | disposition home or self-care (01) ==
LOC: LABBT 09:14
PROVIDERS: ATTEND Surgery
DX: Z01.818 Encounter for other preprocedural examination (principal); K80.20 Calculus of gallbladder without cholecystitis without obstruction
CPT/HCPCS: 80053; 85025; 93005; 93010

== ENCOUNTER 2019-03-27 10:32 | Day surgery (SDC) | payer MEDICARE, BC ==
[2019-03-07 12:37] VITALS: BMI 24.7
[2019-03-27 11:59] LABS: #Basophils 0.1 thou/uL (0.0-0.2); #Lymphocytes 1.7 thou/uL (1.20-3.40); #Monocytes 0.7 thou/uL (0.11-0.59); %Basophils 0.7 % (0.0-1.0); %Eosinophils 0.1 % (0.0-10.0); %Monocytes 7.1 % (0.0-10.0); %Neutrophils 74.1 % (42.0-75.0); Hemoglobin 13.4 g/dL (12.0-16.0); Mean Corpuscular HGB CONC 33.7 g/dL (32.0-36.0); Mean Corpuscular Hemoglobin 29.2 pg (27.0-31.0); Mean Corpuscular Volume 86.7 fL (78.0-98.0); Mean Platelet Volume 8.3 fL (7.4-10.4); Platelet Count 256 thou/uL (130-400); RBC Distribution Width 12.7 % (11.5-14.5); White Blood Cell (WBC) Count 9.5 thou/uL (4.8-10.8)
[2019-03-27 12:36] LABS: ALT (SGPT) 22 U/L (8-55); AST (SGOT) 20 U/L (5-34); Albumin 4.7 g/dL (3.4-4.8); Alkaline Phosphatase 83 U/L (40-110); Anion Gap 18 mmol/L (10-20); BUN (Urea Nitrogen) 13 mg/dL (9.8-20.1); Bilirubin, Total 0.8 mg/dL (0.2-1.2); Calc. Creatinine Clearance 33 mL/min (70-130); Calcium 9.8 mg/dL (7.8-10.44); Carbon Dioxide 21 mmol/L (23-31); Chloride 105 mmol/L (98-107); Estimated GFR-MDRD 37; Globulin 2.7 g/dL (2.4-3.5); Glucose 99 mg/dL (83-110); Potassium 4.4 mmol/L (3.5-5.1); Protein, Total 7.4 g/dL (6.0-8.3); Sodium 140 mmol/L (136-145)
[2019-03-27] MEDS ORDERED: Dexamethasone 20 MG/5 ML VIAL ONE (12:37)
[2019-03-27] MEDS ORDERED: PROPOFOL 200 MG/20 ML VIAL ONE (12:37)
[2019-03-27] MEDS ORDERED: PHENYLEPHRINE-NS 100 MCG/ML 10 ML SYRINGE ONE (12:37)
[2019-03-27] MEDS ORDERED: Ondansetron PF 4 MG/2 ML Vial ONE (12:37)
[2019-03-27] MEDS ORDERED: Lidocaine 1% PF 5 ML VIAL ONE (12:37)
[2019-03-27] MEDS ORDERED: Fentanyl 250 MCG/5 ML VIAL ONE (13:13)
[2019-03-27] MEDS ORDERED: Bupivacaine HCl 0.25%/Epi 0.0005/PF 10 ML VIAL FS ONE ×2 (13:20)
[2019-03-27] MEDS ORDERED: Lidocaine 2% PF 5 ML VIAL ONE (13:20)
[2019-03-27] MEDS ORDERED: Midazolam HCl 2 mg/2 ml Vial ONE (13:47)
[2019-03-27] MEDS ORDERED: Ketamine 50 MG/ML (10ML VIAL) ONE (13:47)
[2019-03-27] MEDS ORDERED: Lidocaine 2% Jelly 5 ML TUBE ONE (14:57)
[2019-03-27] MEDS ORDERED: Fentanyl 100 MCG/2 ML VIAL ONE (15:55)
[2019-03-27] MEDS ORDERED: HYDROcodone/Acetaminophen 5/325 mg Tablet ONE ×2 (17:09→17:34)
--- NOTE | 2019-03-29 20:02 | PDOC.OP ---
Operative Note - Operative Note Operative Note: PROCEDURE: Open 3 column hemorrhoidectomy SURGEON: Darrel Morrow M.D. DATE: 03/27/2019 PREOPERATIVE DIAGNOSIS: Combined internal and external hemorrhoid POSTOPERATIVE DIAGNOSIS: Combined internal and external hemorrhoids HISTORY: Patient with combined internal and external hemorrhoids with frequent bleeding for whom open hemorrhoidectomy was recommended. PROCEDURE IN DETAIL:After informed consent was obtained and appropriate preoperative antibiotics were administered, the patient was taken to the operating room and placed in supine position. General anesthesia was administered and the patient was placed in lithotomy position and prepped and draped in the standard sterile fashion. Local anesthesia was infused circumferentially and 4 quadrant anoscopy carried out. The patient had a large prolapsing combined internal and external hemorrhoid in the right posterolateral position as well as a large prolapsing combined internal and external hemorrhoid at the left posterolateral position and a moderate prolapsing combined internal and external hemorrhoid at the anterior position. All 3 hemorrhoids were excised in the same manner by placing a [id number] suture at the apex of the internal hemorrhoid and creating an elliptical incision down past the external hemorrhoid and dissecting the hemorrhoidal tissue using LigaSure off of the underlying sphincter muscle to the apex following which the mucosa was closed with a running locking 0 chromic suture leaving the external portion open to drain. All 3 hemorrhoids were sent for Pathology and were grossly normal. Following the procedure, the perianal skin was flat. There was no stricture and no bleeding. Local anesthesia was infused circumferentially for postoperative pain management and a Gelfoam plug was placed into the anal canal and the patient was extubated and taken to the recovery room in good condition. Estimated blood loss was minimal. There were no complications. Specimen is hemorrhoids.
== END 2019-03-27 18:00 | disposition home or self-care (01) ==
LOC: SDC 10:32
PROVIDERS: ATTEND Surgery
PROC: 06BY0ZC Excision of Hemorrhoidal Plexus, Open Approach (ICD-10-PCS; principal; 2019-03-27)
DX: K64.4 Residual hemorrhoidal skin tags (principal); K64.8 Other hemorrhoids; I10 Essential (primary) hypertension; E11.9 Type 2 diabetes mellitus without complications; I48.91 Unspecified atrial fibrillation; Z79.01 Long term (current) use of anticoagulants; Z79.899 Other long term (current) drug therapy; Z88.1 Allergy status to other antibiotic agents; Z88.8 Allergy status to other drugs, medicaments and biological substances
CPT/HCPCS: 80053; 85025; 88304; J0690; J1100; J2001; J2250; J2405; J2704; J3010

== ENCOUNTER 2020-01-11 14:54 | Outpatient (CLI) | payer MEDICARE, BC ==
[~2020-01-11 14:54] MED LIST: Iopamidol-370 76% 500 ML 1 ML ONE
--- NOTE | 2020-01-11 16:17 | CT ---
CT OF THE ABDOMEN ONLY WITHOUT AND WITH CONTRAST: 01/11/20 COMPARISON: 12/31/19 HISTORY: Adrenal nodule seen on prior CT. TECHNIQUE: Multiple contiguous axial images were obtained in a CT of the abdomen only without and with IV contra st. Postcontrast images are obtained in the venous phase and delayed phases. Sagittal and coronal ref ormats were performed. FINDINGS: There is a 2.0 cm right adrenal nodule. On the precontrast examination, this has a mean Hounsfield un it value of 1. After administration of contrast, this enhances to a Hounsfield unit value of 49 and w ashes out to a Hounsfield unit value of 17 on the 10 minute delayed image. No other adrenal nodules a re seen. There is hypodensities in the right lobe of the liver measuring 1.3 cm in size that does not demonstr ate significant enhancement and has a Hounsfield unit value of approximately 15 on all three examinat ions. There is a fold in the gallbladder neck which produces the appearance of hyperdensity in the neck of the gallbladder but this only appears to represent a fold on the coronal images. The kidneys, left ad renal gland, spleen, and pancreas are unremarkable. Scattered diverticula are seen in the colon. Contrast is seen within some of these diverticula from r ecent contrast examination. The visualized small bowel is normal in caliber. No abdominal adenopathy is seen. Atherosclerotic calcifications are seen in the aorta. Degenerative changes are seen in the spine. The visualized inferior thorax and abdominal wall soft ti ssues are unremarkable. IMPRESSION: 1. Right fat containing adrenal adenoma. 2. Hepatic cyst. 3. Diverticulosis. POS: EAA
== END 2020-01-11 14:55 | disposition home or self-care (01) ==
LOC: BICCT 14:54
PROVIDERS: ATTEND Surgery
DX: E27.9 Disorder of adrenal gland, unspecified (principal); K57.90 Diverticulosis of intestine, part unspecified, without perforation or abscess without bleeding; K76.89 Other specified diseases of liver
CPT/HCPCS: 74170; 82565; Q9967

== ENCOUNTER 2020-03-07 12:15 | Inpatient (IN) | payer MEDICARE, BC ==
[2020-03-11 12:25] VITALS: BMI 25.1
[2020-03-12] MEDS ORDERED: cefOXitin Sodium/Dextrose 2 GM/50 ML BAG ONE (06:58)
[2020-03-12] MEDS ORDERED: Sodium Chloride 0.9% 0 ML ONE (06:58)
--- NOTE | 2020-03-12 07:38 | RAD ---
Chest 2 views HISTORY: Preop. COMPARISON: 07/31/2018. FINDINGS: Cardiac silhouette is enlarged. Pulmonary vasculature are unremarkable. Mediastinum is midline with aortic calcification. Curvature of the thoracic spine is stable. Lungs remain hyperinflated with flattening of the hemidiaphragms. No confluent airspace consolidation , pneumothorax, or pleural fluid are apparent. IMPRESSION : Pulmonary hyperinflation, stable. Cardiomegaly, stable. Atherosclerosis.
[2020-03-12 07:41] LABS: #Eosinphils 0.1 thou/uL (0.0-0.7); #Lymphocytes 2.5 thou/uL (1.20-3.40); #Monocytes 0.8 thou/uL (0.11-0.59); #Neutrophils 5.6 thou/uL (1.40-6.50); %Basophils 0.5 % (0.0-1.0); %Eosinophils 0.5 % (0.0-10.0); %Lymphocytes 27.9 % (21.0-51.0); %Monocytes 9.1 % (0.0-10.0); %Neutrophils 61.9 % (42.0-75.0); Hemoglobin 14.5 g/dL (12.0-16.0); Mean Corpuscular HGB CONC 32.3 g/dL (32.0-36.0); Mean Corpuscular Hemoglobin 28.3 pg (27.0-31.0); Mean Corpuscular Volume 87.4 fL (78.0-98.0); Mean Platelet Volume 10.1 fL (7.4-10.4); Platelet Count 165 thou/uL (130-400); Red Blood Cell (RBC) Count 5.12 mill/uL (4.20-5.40); White Blood Cell (WBC) Count 9.1 thou/uL (4.8-10.8)
[2020-03-12 07:42] LABS: Hemoglobin A1c 5.6 % (4.0-6.0)
[2020-03-12 07:51] LABS: Anion Gap 17 mmol/L (10-20); BUN (Urea Nitrogen) 25 mg/dL (9.8-20.1); Calc. Creatinine Clearance 34 mL/min (70-130); Calcium 9.4 mg/dL (7.8-10.44); Carbon Dioxide 21 mmol/L (23-31); Chloride 103 mmol/L (98-107); Estimated GFR-MDRD 37; Glucose 70 mg/dL (83-110); Potassium 3.6 mmol/L (3.5-5.1); Sodium 137 mmol/L (136-145)
[2020-03-12] MEDS ORDERED: Fentanyl 100 MCG/2 ML VIAL ONE ×4 (07:54→14:14)
[2020-03-12] MEDS ORDERED: Midazolam HCl 2 mg/2 ml Vial ONE ×2 (07:54→08:08)
[2020-03-12] MEDS ORDERED: Lidocaine 1% (PF) 30 ML VIAL ONE (07:55)
[2020-03-12] MEDS ORDERED: Bupivacaine/Epinephrine 0.25% 30 ML VIAL ONE (08:09)
[2020-03-12] MEDS ORDERED: Phenylephrine 10 MG/ML VIAL ONE (08:52)
[2020-03-12] MEDS ORDERED: Rocuronium Bromide 10 MG/ML (10ML VIAL) ONE (09:34)
[2020-03-12] MEDS ORDERED: PHENYLEPHRINE-NS 100 MCG/ML 10 ML SYRINGE ONE (09:34)
[2020-03-12] MEDS ORDERED: Ondansetron PF 4 MG/2 ML Vial ONE (09:34)
[2020-03-12] MEDS ORDERED: Lidocaine 1% PF 5 ML VIAL ONE (09:34)
[2020-03-12] MEDS ORDERED: PROPOFOL 200 MG/20 ML VIAL ONE (09:34)
[2020-03-12] MEDS ORDERED: Esmolol 100 MG/10 ML VIAL ONE (09:34)
[2020-03-12] MEDS ORDERED: Bupivacaine HCl 0.5%/Epinephrine 1:200,000/PF 30 ml Vial ONE (09:34)
[2020-03-12] MEDS ORDERED: Methylene Blue 50 MG/10 ML AMPUL ONE (09:41)
[2020-03-12] MEDS ORDERED: ceFOXitin 1 GM VIAL ONE (12:32)
[2020-03-12] MEDS ORDERED: Ondansetron HCl/PF 4 MG/2 ML Vial IVP PRN (13:12)
[2020-03-12] MEDS ORDERED: Promethazine HCl 25 MG/ML VIAL SLOW IVP PRN (13:12)
[2020-03-12] MEDS ORDERED: Promethazine HCl 25 MG/ML VIAL IM PRN ×3 (13:12→13:33)
[2020-03-12] MEDS ORDERED: Morphine 2 MG/ML VIAL SLOW IVP PRN (13:25)
[2020-03-12] MEDS ORDERED: Ondansetron PF 4 MG/2 ML Vial IVP PRN (13:25)
[2020-03-12] MEDS ORDERED: hydrALAZINE 20 MG/ML VIAL SLOW IVP PRN ×2 (13:25→13:33)
[2020-03-12] MEDS ORDERED: Non-Formulary Item 1 EACH (Albuterol Sulfate 200 PUFF Inh) INH PRN (13:29)
[2020-03-12] MEDS ORDERED: Insulin Regular 300 UNITS/3 ML VIAL SC PRN (13:33)
[2020-03-12] MEDS ORDERED: D5 1/2 NS w/20 mEq KCL 1,000 ML ONE (14:32)
[2020-03-12] MEDS: D5 1/2 NS w/20 mEq KCL 1,000 ML IV SCH ×3 (14:45→23:40)
--- NOTE | 2020-03-12 15:52 | PDOC.OP ---
Operative Note - Operative Note Operative Note: PROCEDURE: Laparoscopic hand-assisted sigmoid colectomy with splenic flexure mobilization SURGEON: Darrel Morrow M.D. 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 Sigmoid colectomy has been recommended. FINDINGS: Dense adhesions between the sigmoid colon and the vaginal cuff with a wide fistula. Dense inflammation and fibrosis surrounding this area of the sigmoid colon. Pancolonic diverticulosis with the most extensively involved area in the sigmoid colon. PROCEDURE IN DETAIL: After informed consent was obtained and appropriate bowel preparation and oral and IV antibiotics were administered the patient was taken to the operating room she was placed in supine position and general endotracheal anesthesia was administered. She was placed in lithotomy position and prepped and draped in standard sterile fashion. Local anesthesia was infused the skin and subcutaneous tissues at the periumbilical area and a 6 cm incision made. Dissection was carried down to the fascia which was incised under direct vision. The peritoneal cavity was entered and no adhesions noted. A wound protector and GelPort were placed and carbon dioxide gas insufflated to an intra-abdominal pressure 15 which the patient tolerated well. A 5 mm epigastric and 12 mm right lower quadrant port were placed under direct laparoscopic vision. The peritoneum was incised lateral to the sigmoid colon and the upper sigmoid colon and descending colon mobilized medially. The ureter and gonadal vessels were easily palpable well lateral to the mesentery of the sigmoid colon, and then coursing anterior to the area of the dense adhesions to the vaginal cuff. The ureter and gonadal vessels were periodically reexamined during the case to ensure they were not near the area of dissection. The sigmoid colon was very adherent to the anterolateral pelvic wall near the area of the vaginal cuff. The left ovary was also adherent to the segment of the colon but was mobilized off of the colon and the plane was able to be developed between the colon and the vaginal cuff. Additional adhesions anterior to the area of the fistula were taken down through the avascular plane mobilizing the lower sigmoid colon and allowing palpation posterior to the area of the fistula. The mesentery of the colon near the juncture of the sigmoid and descending colon was divided creating a window and a laparoscopic stapler was placed across the lower descending colon and fired. The sigmoid colon mesentery was then divided close to the wall of t he sigmoid colon down to the area of the fistula. There was a fair amount of oozing from the mesentery due to fibrosis and inflammation in the mesentery in this area but this was all able to be controlled by LigaSure. The tissues surrounding the colovaginal fistula were able to be completely dissected free and the fairly wide fistulous tract was then divided using the LigaSure. The remainder of the sigmoid colon mesentery was then divided down to the level of the peritoneal reflection and a laparoscopic stapler placed across the upper rectum. This was closed and fired dividing the upper rectum. The sigmoid colon was removed through the GelPort and passed from the field with a long suture marking the distal end. Due to the proximity of the bladder to the area of dissection the decision was made to instill methylene blue saline into the bladder to check for leak. The bladder was distended with methylene blue saline and no leak seen. The fistulous opening into the vaginal cuff was closed with a single 3-0 Vicryl suture laparoscopically. The distal descending colon was under some tension when approximated to the rectal stump so the descending colon and distal transverse colon were entirely mobilized by incising the white line of Toldt and dividing the connections at the splenic flexure. Following this the descending colon reached down easily to the rectal stump without tension. The operative site was examined and hemostasis was verified. The sigmoid colon was then externalized through the wound protector and towels were placed around it. The staple line was excised and sizers placed into the colon and a 29 mm EEA stapler selected. A pursestring suture was placed around the end of the descending colon and the anvil placed into the descending colon and the pursestring suture secured. The wall of the colon was cleared up and one large diverticulum secured to the anvil to keep it out of the staple line. The colon was dropped back into the abdominal cavity. Sizers were easily passed to the end of the rectal stump under direct laparoscopic vision. A 29 mm EEA stapler was then passed to the end of the rectal stump and the spike advanced through the end of the rectum just above the staple line. This was mated to the anvil and the stapler was closed and fired. The EEA stapler was then removed and 2 full- thickness donuts were confirmed on the back table. Saline was instilled into the pelvis and a proctoscope placed into the distal rectum and air insufflated into the rectum with the descending colon digitally clamped, distending the staple line with gas. No bubbling was seen from the staple line which appeared entirely healthy. The saline was then suctioned out of the pelvis and the small intestine returned to its normal anatomic position. The omentum was drawn down over the small bowel. The 12 mm trocar in the right lower quadrant was removed and the fascial defect closed with a 0 Vicryl suture on a GraNee needle under direct laparoscopic vision. The 5 mm left lower quadrant and right lower quadrant and epigastric trocars were removed and hemostasis verified. The GelPort and wound protector were removed and Seprafilm placed anterior to the omentum. The fascia was closed with a running PDS suture. The wound was copiously irrigated and the skin incisions were closed with running subcuticular Monocryl sutures. Dermabond dressings were placed and the patient was extubated and taken to recovery in good condition. Estimated blood loss was 250 mL. There were no complications. Specimen is sigmoid colon.
[2020-03-12] MEDS: Morphine 4 MG/ML VIAL SLOW IVP PRN ×2 (16:23→20:14)
[2020-03-12] MEDS: Ondansetron PF 4 MG/2 ML Vial IVP PRN (16:23)
--- NOTE | 2020-03-12 17:23 | EKG ---
Test Reason : PREOP Blood Pressure : / mmHG Vent. Rate : 082 BPM Atrial Rate : 071 BPM P-R Int : 000 ms QRS Dur : 084 ms QT Int : 408 ms P-R-T Axes : 000 104 -03 degrees QTc Int : 476 ms Atrial fibrillation with a competing junctional pacemaker Rightward axis Pulmonary disease pattern Septal infarct , age undetermined Abnormal ECG No previous ECGs available Confirmed by ABHIJIT PETER (2) on 03/12/2020 5:22:59 PM Referred By: CHAR Confirmed By:ABHIJIT PETER
[2020-03-12] MEDS: Famotidine/PF 20 mg/2ml Vial SLOW IVP SCH (20:14)
[2020-03-12] MEDS: cefOXitin Sodium/Dextrose,Iso 1 GM in Premix Bag 1 BAG IVPB SCH (20:15)
[2020-03-12] MEDS: Famotidine 20 MG TAB PO SCH (20:15)
[2020-03-12] MEDS ORDERED: Olmesartan 5 MG TAB PO SCH ×2 (21:00)
[2020-03-12] MEDS ORDERED: Famotidine/PF 20 mg/2ml Vial SLOW IVP SCH (21:00)
[2020-03-12] MEDS ORDERED: Famotidine 20 MG TAB PO SCH (21:00)
[2020-03-13] MEDS: Morphine 4 MG/ML VIAL SLOW IVP PRN ×2 (02:27→08:08)
[2020-03-13] MEDS: cefOXitin Sodium/Dextrose,Iso 1 GM in Premix Bag 1 BAG IVPB SCH (03:33)
[2020-03-13 05:44] LABS: #Lymphocytes 1.3 thou/uL (1.20-3.40); #Monocytes 1.1 thou/uL (0.11-0.59); %Basophils 0.1 % (0.0-1.0); %Eosinophils 0.1 % (0.0-10.0); %Lymphocytes 10.1 % (21.0-51.0); %Monocytes 8.8 % (0.0-10.0); Hemoglobin 11.6 g/dL (12.0-16.0); Mean Corpuscular Hemoglobin 28.9 pg (27.0-31.0); Mean Corpuscular Volume 87.6 fL (78.0-98.0); Mean Platelet Volume 9.4 fL (7.4-10.4); Platelet Count 164 thou/uL (130-400); RBC Distribution Width 14.1 % (11.5-14.5); Red Blood Cell (RBC) Count 4.01 mill/uL (4.20-5.40); White Blood Cell (WBC) Count 12.4 thou/uL (4.8-10.8)
[2020-03-13 06:07] LABS: Anion Gap 10 mmol/L (10-20); BUN (Urea Nitrogen) 14 mg/dL (9.8-20.1); Calc. Creatinine Clearance 46 mL/min (70-130); Calcium 7.8 mg/dL (7.8-10.44); Carbon Dioxide 23 mmol/L (23-31); Chloride 106 mmol/L (98-107); Estimated GFR-MDRD 53; Glucose 165 mg/dL (83-110); Potassium 4.4 mmol/L (3.5-5.1); Sodium 135 mmol/L (136-145)
[2020-03-13] MEDS: Torsemide 20 MG TAB PO SCH (08:07)
[2020-03-13] MEDS: Famotidine 20 MG TAB PO SCH (08:07)
[2020-03-13] MEDS: D5 1/2 NS w/20 mEq KCL 1,000 ML IV SCH ×2 (08:08→16:41)
[2020-03-13] MEDS: Enoxaparin Sodium 40 MG/0.4 ML SYRINGE SC SCH (08:14)
[2020-03-13] MEDS: Famotidine/PF 20 mg/2ml Vial SLOW IVP SCH (08:16)
--- NOTE | 2020-03-13 09:30 | PDOC.GSPN ---
Surgery Progress Note: Subj - Subjective Narrative: Patient's main complaint is inadequate pain control. She does not feel like the incisions are hurting. She feels like the pain is deeper in the abdomen. She did have intense inflammatory changes in the left lower quadrant and has a fairly large raw surface area from her surgery in this region which would not be helped by her tap blocks. She states that morphine has not really helped so I am going to ask the pain management team to get her a MANAGER ASSEMBLY. She states that the pain is worse when she tries to cough or moves so her activities have been limited. She has passed some gas but has also been burping and her abdomen is quiet so I am just going to leave her on clear liquids as tolerated. Her hematocrit today is 35 down from her baseline of around 40, which is consistent with intraoperative losses. Her white count is up a little bit most likely due to stress response and postoperative. She is afebrile and her vital signs are normal. Her urine output has been good. Assessment/plan: Status post sigmoid colectomy doing well overall but with inadequate pain control. We are going to get her a MANAGER ASSEMBLY so that we can improve her mobility. She has passed some flatus but is also burping so I am not going to advance her diet beyond clear liquids. Her urine output is good and her creatinine has come down; I think it was elevated due to some dehydration after her bowel prep. I will continue her IV fluids for now and recheck labs in the morning. Surgery Progress Note: Obj - Vital signs Vital signs: Vital Signs - Most Recent Temp Pulse Resp BP Pulse Ox 97.8 F 96 18 114/67 95 03/13/20 04:15 03/13/20 04:15 03/13/20 04:15 03/13/20 04:15 03/13/20 04:15 Surgery Progress Note: Results - Labs Result Diagrams: 03/13/20 05:17 03/13/20 05:17 Lab results: Laboratory Results - last 12 hr 03/13/20 03/13/20 03/13/20 00:22 05:17 05:17 WBC 12.4 H RBC 4.01 L Hgb 11.6 L Hct 35.1 L MCV 87.6 MCH 28.9 MCHC 33.0 RDW 14.1 Plt Count 164 MPV 9.4 Neutrophils % 81.0 H Lymphocytes % 10.1 L Monocytes % 8.8 Eosinophils % 0.1 Basophils % 0.1 Neutrophils # 10.0 H Lymphocytes # 1.3 Monocytes # 1.1 H Eosinophils # 0.0 Basophils # 0.0 Sodium 135 L Potassium 4.4 Chloride 106 Carbon Dioxide 23 Anion Gap 10 BUN 14 Creatinine 1.01 Estimated GFR (MDRD) 53 Glucose 165 H POC Glucose 195 H Calcium 7.8 03/13/20 05:41 WBC RBC Hgb Hct MCV MCH MCHC RDW Plt Count MPV Neutrophils % Lymphocytes % Monocytes % Eosinophils % Basophils % Neutrophils # Lymphocytes # Monocytes # Eosinophils # Basophils # Sodium Potassium Chloride Carbon Dioxide Anion Gap BUN Creatinine Estimated GFR (MDRD) Glucose POC Glucose 151 H Calcium
[2020-03-13] MEDS ORDERED: Ondansetron PF 4 MG/2 ML Vial IVP PRN (10:00)
[2020-03-13] MEDS ORDERED: Zolpidem Tartrate 5 MG TAB PO PRN (10:00)
[2020-03-13] MEDS ORDERED: Naloxone HCl 0.4 mg/ml Vial IV PRN (10:00)
[2020-03-13] MEDS ORDERED: diphenhydrAMINE 50 MG/ML VIAL IM/IV PRN (10:00)
[2020-03-13] MEDS ORDERED: Promethazine HCl 25 MG/ML VIAL IM PRN (10:00)
[2020-03-13] MEDS ORDERED: diphenhydrAMINE 25 MG CAP PO PRN (10:00)
[2020-03-13] MEDS: fentaNYL Citrate/PF 2,000 MCG in Sodium Chloride 0.9% 60 ML IV PRN (10:19)
[2020-03-13] MEDS: Acetaminophen 500 MG TAB PO SCH ×3 (10:22→23:06)
[2020-03-13] MEDS: Ketorolac Tromethamine 30 MG/ML VIAL IVP SCH ×3 (11:59→23:07)
[2020-03-13] MEDS ORDERED: HYDROcodone/Acetaminophen 7.5/325 mg Tablet PO PRN ×2 (13:26)
--- NOTE | 2020-03-13 15:58 | PDOC.FMACP ---
Advance Care Planning - Problem (1) Palliative care encounter Status: Acute Code(s): Z51.5 - ENCOUNTER FOR PALLIATIVE CARE (2) A-fib Status: Acute Code(s): I48.91 - UNSPECIFIED ATRIAL FIBRILLATION Qualifiers: Atrial fibrillation type: chronic (3) COPD (chronic obstructive pulmonary disease) Status: Acute Qualifiers: COPD type: COPD with acute exacerbation Qualified Code(s): J44.1 - Chronic obstructive pulmonary disease with (acute) exacerbation (4) Diabetes mellitus Status: Acute Code(s): E11.9 - TYPE 2 DIABETES MELLITUS WITHOUT COMPLICATIONS (5) Hypertension Status: Acute Code(s): I10 - ESSENTIAL (PRIMARY) HYPERTENSION - Note Participants: patient, palliative care Summary: Palliative Care addressed Advanced Care Planning, opportunity to decline. The diagnosis, prognosis and goals of care were discussed. Appropriate forms and documentation to accomplish the goals of care were discussed. All questions were answered. Ms Nava elected to complete a MPOA. Confirmed full resuscitation status and Directive to Physician was left for patient to review. Should Ms Nava elect to complete the Directive to Physician the Palliative Care Team will assist with completion of it or any outstanding forms that are identified. Time Spent (mins): 15
[2020-03-13] MEDS: OLMESARTAN 5 MG TABLET PO SCH (20:14)
[2020-03-14] MEDS: Ondansetron PF 4 MG/2 ML Vial IVP PRN (05:12)
[2020-03-14] MEDS: Acetaminophen 500 MG TAB PO SCH ×4 (05:12→21:17)
[2020-03-14] MEDS: Ketorolac Tromethamine 30 MG/ML VIAL IVP SCH ×3 (05:12→18:01)
[2020-03-14 05:50] LABS: Anion Gap 8 mmol/L (10-20); BUN (Urea Nitrogen) 13 mg/dL (9.8-20.1); Calc. Creatinine Clearance 44 mL/min (70-130); Calcium 7.9 mg/dL (7.8-10.44); Carbon Dioxide 24 mmol/L (23-31); Chloride 106 mmol/L (98-107); Estimated GFR-MDRD 50; Glucose 139 mg/dL (83-110); Potassium 4.3 mmol/L (3.5-5.1); Sodium 134 mmol/L (136-145)
[2020-03-14 06:22] LABS: #Eosinphils 0.1 thou/uL (0.0-0.7); #Lymphocytes 1.3 thou/uL (1.20-3.40); #Monocytes 0.9 thou/uL (0.11-0.59); #Neutrophils 8.4 thou/uL (1.40-6.50); %Basophils 0.3 % (0.0-1.0); %Eosinophils 1.4 % (0.0-10.0); %Monocytes 8.4 % (0.0-10.0); %Neutrophils 77.9 % (42.0-75.0); Hemoglobin 10.9 g/dL (12.0-16.0); Mean Corpuscular HGB CONC 32.9 g/dL (32.0-36.0); Mean Corpuscular Hemoglobin 29.7 pg (27.0-31.0); Mean Corpuscular Volume 90.3 fL (78.0-98.0); Mean Platelet Volume 10.1 fL (7.4-10.4); Platelet Count 114 thou/uL (130-400); Platelet Morphology Comment Appears Adequate; RBC Distribution Width 14.1 % (11.5-14.5); Red Blood Cell (RBC) Count 3.67 mill/uL (4.20-5.40); White Blood Cell (WBC) Count 10.8 thou/uL (4.8-10.8)
--- NOTE | 2020-03-14 08:30 | PDOC.GSPN ---
Surgery Progress Note: Subj - Subjective Narrative: Patient is feeling better today. She is able to cough and take deep breaths. She still has pain in her lower abdomen with coughing but it is much better than before. No more flatus since yesterday morning. She is still belching and feels a little bloated. Afebrile with normal vital signs. White count is normal and hematocrit is stable. Creatinine is normal. Urine output is not quantified. Abdomen is soft slightly distended tympanic but with normal bowel sounds. Incisions look good. She has moderate lower abdominal tenderness. Assessment/plan: Status post laparoscopic hand-assisted sigmoid colectomy and repair of colovaginal fistula. Pain control is better. Awaiting return of bowel function. Clear liquids as tolerated. Encourage ambulation. Abdominal binder when up if this feels more comfortable. Continue pulmonary toilet. Surgery Progress Note: Obj - Vital signs Vital signs: Vital Signs - Most Recent Temp Pulse Resp BP Pulse Ox 97.7 F 74 22 H 122/75 95 03/14/20 07:45 03/14/20 07:45 03/14/20 07:45 03/14/20 07:45 03/14/20 07:45 Surgery Progress Note: Results - Labs Result Diagrams: 03/14/20 05:11 03/14/20 05:11 Lab results: Laboratory Results - last 12 hr 03/13/20 03/14/20 03/14/20 23:10 05:11 05:11 WBC 10.8 RBC 3.67 L Hgb 10.9 L Hct 33.2 L MCV 90.3 MCH 29.7 MCHC 32.9 RDW 14.1 Plt Count 114 L MPV 10.1 Neutrophils % 77.9 H Lymphocytes % 12.0 L Monocytes % 8.4 Eosinophils % 1.4 Basophils % 0.3 Neutrophils # 8.4 H Lymphocytes # 1.3 Monocytes # 0.9 H Eosinophils # 0.1 Basophils # 0.0 Plt Morphology Comment Appears Adequate Sodium 134 L Potassium 4.3 Chloride 106 Carbon Dioxide 24 Anion Gap 8 L BUN 13 Creatinine 1.06 Estimated GFR (MDRD) 50 Glucose 139 H POC Glucose 154 H Calcium 7.9
[2020-03-14] MEDS: Torsemide 20 MG TAB PO SCH (09:00)
[2020-03-14] MEDS: Famotidine 20 MG TAB PO SCH (09:26)
[2020-03-14] MEDS: Famotidine/PF 20 mg/2ml Vial SLOW IVP SCH (09:29)
[2020-03-14] MEDS: OLMESARTAN 5 MG TABLET PO SCH ×2 (09:29→21:25)
[2020-03-14] MEDS: D5 1/2 NS w/20 mEq KCL 1,000 ML IV SCH ×4 (09:41→21:16)
[2020-03-14] MEDS: Enoxaparin Sodium 40 MG/0.4 ML SYRINGE SC SCH (10:56)
[2020-03-15] MEDS: Ketorolac Tromethamine 30 MG/ML VIAL IVP SCH ×2 (00:37→06:45)
[2020-03-15] MEDS: D5 1/2 NS w/20 mEq KCL 1,000 ML IV SCH ×2 (04:30→09:05)
[2020-03-15] MEDS: Acetaminophen 500 MG TAB PO SCH ×4 (04:30→23:46)
[2020-03-15] MEDS: Famotidine 20 MG TAB PO SCH (08:49)
[2020-03-15] MEDS: Enoxaparin Sodium 40 MG/0.4 ML SYRINGE SC SCH (08:56)
[2020-03-15] MEDS: Famotidine/PF 20 mg/2ml Vial SLOW IVP SCH (08:57)
[2020-03-15] MEDS: OLMESARTAN 5 MG TABLET PO SCH ×2 (08:57→20:14)
[2020-03-15] MEDS: Torsemide 20 MG TAB PO SCH (09:05)
--- NOTE | 2020-03-15 11:38 | PDOC.GSPN ---
Surgery Progress Note: Subj - Subjective Narrative: Patient is postoperative day 3 from a hand-assisted sigmoidectomy- Patient has been up and walking in the halls. Sounds like she had some post ambulatory shortness of breath that has now resolved that she is back in bed. She states this is not new for her as she has "chronic lung problems". Patient states that this morning, she is feeling a little distended and having some lower abdominal discomfort. Denies any nausea. She is only taking sips of water and ice. Denies flatus or bowel movement. Surgery Progress Note: Obj - Vital signs Vital signs: Vital Signs - Most Recent Temp Pulse Resp BP Pulse Ox 97.5 F L 73 16 146/82 H 97 03/15/20 07:47 03/15/20 07:47 03/15/20 07:47 03/15/20 07:47 03/15/20 07:47 - Physical Exam Additional exam: General-appears slightly uncomfortable, sitting up in bed Head-[normocephalic, atraumatic] HEENT- [EOMI], [PERRLA] Neck-[trachea midline, supple] Lungs-[grossly clear to auscultation], [normal air movement] Heart-[regular regular], [no murmurs] Abdomen-[soft], patient does have some distention with tympany, appropriately tender, [soft/normal active bowel sounds], incision is clean dry and intact Musculosketal-[full range of motion], [no gross deformity] Psychiatric-patient appears a little frustrated that she is not recovering faster, Skin-[good turgor, no jaundice] Neuro- [GCS 15], [CN II-XII intact] Surgery Progress Note: Results - Labs Result Diagrams: 03/14/20 05:11 03/14/20 05:11 Lab results: Laboratory Results - last 12 hr 03/14/20 03/15/20 23:45 05:14 POC Glucose 113 H 124 H Surgery Progress Note: A/P - Problem (1) Colovaginal fistula Current Visit: Yes Code(s): N82.4 - OTHER FEMALE INTESTINAL-GENITAL TRACT FISTULAE Status: Acute Assessment and Plan: Patient is postoperative day 3. She does have bowel sounds, but appears to have some distention. She is not tachycardic and she has not had a fever. No nausea at present. I will order a basic metabolic panel to check for electrolyte issu es. Otherwise continue current course. If she starts to become nauseated or starts vomiting, we will need to insert an NG tube.
[2020-03-15 12:43] LABS: Anion Gap 11 mmol/L (10-20); BUN (Urea Nitrogen) 13 mg/dL (9.8-20.1); Calc. Creatinine Clearance 55 mL/min (70-130); Calcium 8.4 mg/dL (7.8-10.44); Carbon Dioxide 21 mmol/L (23-31); Chloride 106 mmol/L (98-107); Estimated GFR-MDRD 65; Glucose 145 mg/dL (83-110); Potassium 5.5 mmol/L (3.5-5.1); Sodium 132 mmol/L (136-145)
[2020-03-15] MEDS: Dextrose 5 %-0.45 % NaCl 1,000 ML IV SCH (16:50)
[2020-03-16] MEDS: Dextrose 5 %-0.45 % NaCl 1,000 ML IV SCH ×3 (01:04→17:20)
[2020-03-16] MEDS: Acetaminophen 500 MG TAB PO SCH (03:50)
[2020-03-16] MEDS: Enoxaparin Sodium 40 MG/0.4 ML SYRINGE SC SCH (07:57)
[2020-03-16] MEDS: Famotidine/PF 20 mg/2ml Vial SLOW IVP SCH (07:57)
[2020-03-16] MEDS: Famotidine 20 MG TAB PO SCH (07:58)
[2020-03-16] MEDS: OLMESARTAN 5 MG TABLET PO SCH ×2 (07:58→19:41)
[2020-03-16] MEDS: Torsemide 20 MG TAB PO SCH (08:02)
[2020-03-16] MEDS: Ondansetron PF 4 MG/2 ML Vial IVP PRN (09:41)
--- NOTE | 2020-03-16 16:37 | PDOC.GSPN ---
Surgery Progress Note: Subj - Subjective Narrative: Patient is postoperative day 4 from a hand-assisted laparoscopic sigmoidectomy. Patient states that she feels better today than yesterday. No nausea. She states that she is passing flatus. She is sitting up in a chair. Declined the walking program earlier today. Surgery Progress Note: Obj - Vital signs Vital signs: Vital Signs - Most Recent Temp Pulse Resp BP Pulse Ox 97.8 F 91 16 146/84 H 94 L 03/16/20 15:52 03/16/20 15:52 03/16/20 15:52 03/16/20 15:52 03/16/20 15:52 - Physical Exam Additional exam: General-[no acute distress, well-nourished] Head-[normocephalic, atraumatic] HEENT- [EOMI], [PERRLA] Neck-[trachea midline, supple] Lungs-diminished at the bases bilaterally, [normal air movement] Heart-[regular regular], [no murmurs] Abdomen-[soft], still somewhat distended, appropriately tender, [normal active bowel sounds], main incision is clean dry and intact without erythema Musculosketal-[full range of motion], [no gross deformity] Psychiatric-[good insight, good judgment] Skin-[good turgor, no jaundice] Neuro- [GCS 15], [CN II-XII intact] Surgery Progress Note: Results - Labs Result Diagrams: 03/14/20 05:11 03/15/20 12:09 Lab results: Laboratory Results - last 12 hr 03/16/20 03/16/20 05:21 10:43 POC Glucose 117 H 133 H Surgery Progress Note: A/P - Problem (1) Colovaginal fistula Current Visit: Yes Code(s): N82.4 - OTHER FEMALE INTESTINAL-GENITAL TRACT FISTULAE Status: Acute Assessment and Plan: Patient has had good bowel sounds for 2 days. She states she is passing flatus this morning. She is still slightly distended but not complaining of the lower abdominal pain that she was having yesterday. I think it is reasonable to advance her to a clear liquid diet. I encouraged her to stay out of bed. Ambulating is important. Continue to work with her incentive spirometer.
[2020-03-16] MEDS: fentaNYL Citrate/PF 2,000 MCG in Sodium Chloride 0.9% 60 ML IV PRN (19:40)
[2020-03-17] MEDS: Dextrose 5 %-0.45 % NaCl 1,000 ML IV SCH ×3 (02:08→16:05)
[2020-03-17] MEDS: Torsemide 20 MG TAB PO SCH (08:28)
[2020-03-17] MEDS: Famotidine 20 MG TAB PO SCH (08:28)
[2020-03-17] MEDS: OLMESARTAN 5 MG TABLET PO SCH ×2 (08:29→20:14)
[2020-03-17] MEDS: Enoxaparin Sodium 40 MG/0.4 ML SYRINGE SC SCH (08:29)
[2020-03-17] MEDS: Famotidine/PF 20 mg/2ml Vial SLOW IVP SCH (08:32)
--- NOTE | 2020-03-17 11:34 | PDOC.GSPN ---
Surgery Progress Note: Subj - Subjective Narrative: Patient is still having a lot of gas pain but feels better when she gets up and walks around. She is not having any nausea and is tolerating clear liquids and still passing some gas. Incisions look good. Abdomen is still a little distended no focal findings. Bowel sounds are present. Vital signs look good. Assessment/plan: Status post laparoscopic sigmoid colectomy and repair of colovaginal fistula. Still awaiting full return of bowel function. Gas pains are due to anticipated postoperative ileus. Encouraged ambulation. Have ordered simethicone. Surgery Progress Note: Obj - Vital signs Vital signs: Vital Signs - Most Recent Temp Pulse Resp BP Pulse Ox 98.1 F 116 H 18 129/73 92 L 03/17/20 11:16 03/17/20 11:16 03/17/20 11:16 03/17/20 11:16 03/17/20 11:16 Surgery Progress Note: Results - Labs Result Diagrams: 03/14/20 05:11 03/15/20 12:09 Lab results: Laboratory Results - last 12 hr 03/17/20 05:51 POC Glucose 126 H
[2020-03-17] MEDS: Simethicone Chewable 80 MG TAB PO SCH ×3 (13:16→20:13)
[2020-03-17] MEDS: fentaNYL Citrate/PF 2,000 MCG in Sodium Chloride 0.9% 60 ML IV PRN (20:11)
[2020-03-18] MEDS: Dextrose 5 %-0.45 % NaCl 1,000 ML IV SCH ×3 (04:11→17:22)
[2020-03-18] MEDS: Torsemide 20 MG TAB PO SCH (08:17)
[2020-03-18] MEDS: Famotidine 20 MG TAB PO SCH (08:17)
[2020-03-18] MEDS: Enoxaparin Sodium 40 MG/0.4 ML SYRINGE SC SCH (08:17)
[2020-03-18] MEDS: Simethicone Chewable 80 MG TAB PO SCH ×4 (08:17→20:29)
[2020-03-18] MEDS: OLMESARTAN 5 MG TABLET PO SCH ×2 (08:18→19:45)
[2020-03-18] MEDS: Famotidine/PF 20 mg/2ml Vial SLOW IVP SCH (08:18)
--- NOTE | 2020-03-18 08:55 | PDOC.GSPN ---
Surgery Progress Note: Subj - Subjective Narrative: Patient states that she is feeling about the same. She is passing more gas and she feels better when she gets up and walks. She is still having crampy pain sometimes in the lower abdomen and sometimes will flareup. She has had some intermittent tachycardia into the low 100s which is new. No fever and other vital signs are normal. Abdomen is soft with stable lower abdominal tenderness. Incisions look good. Bowel sounds sound normal. Assessment/plan: Status post sigmoid colectomy and repair of colovaginal fistula. She is passing flatus and denies any nausea but continues to have crampy abdominal pain and has developed some intermittent tachycardia. I am concerned about possible infection or leak. I am going to order some labs and likely a CT of the abdomen and pelvis. Surgery Progress Note: Obj - Vital signs Vital signs: Vital Signs - Most Recent Temp Pulse Resp BP Pulse Ox 97.7 F 99 18 138/69 97 03/18/20 08:21 03/18/20 08:21 03/18/20 08:21 03/18/20 08:21 03/18/20 08:21 Surgery Progress Note: Results - Labs Result Diagrams: 03/14/20 05:11 03/15/20 12:09 Lab results: Laboratory Results - last 12 hr 03/17/20 03/18/20 23:28 05:05 POC Glucose 115 H 125 H
[2020-03-18 09:08] LABS: #Eosinphils 0.1 thou/uL (0.0-0.7); #Lymphocytes 1.2 thou/uL (1.20-3.40); #Monocytes 0.5 thou/uL (0.11-0.59); #Neutrophils 6.9 thou/uL (1.40-6.50); %Basophils 0.1 % (0.0-1.0); %Eosinophils 1.3 % (0.0-10.0); %Monocytes 5.3 % (0.0-10.0); %Neutrophils 79.3 % (42.0-75.0); Hemoglobin 11.4 g/dL (12.0-16.0); Mean Corpuscular HGB CONC 32.5 g/dL (32.0-36.0); Mean Corpuscular Hemoglobin 28.9 pg (27.0-31.0); Mean Corpuscular Volume 88.9 fL (78.0-98.0); Platelet Count 142 thou/uL (130-400); RBC Distribution Width 13.7 % (11.5-14.5); Red Blood Cell (RBC) Count 3.96 mill/uL (4.20-5.40); White Blood Cell (WBC) Count 8.7 thou/uL (4.8-10.8)
[2020-03-18 09:28] LABS: Anion Gap 13 mmol/L (10-20); BUN (Urea Nitrogen) 4 mg/dL (9.8-20.1); Calc. Creatinine Clearance 62 mL/min (70-130); Calcium 8.6 mg/dL (7.8-10.44); Carbon Dioxide 27 mmol/L (23-31); Chloride 100 mmol/L (98-107); Estimated GFR-MDRD 75; Glucose 163 mg/dL (83-110); Potassium 3.7 mmol/L (3.5-5.1); Sodium 136 mmol/L (136-145)
--- NOTE | 2020-03-18 14:17 | CT ---
CT OF THE ABDOMEN AND PELVIS WITH IV, ENTERIC AND RECTAL CONTRAST: 03/18/20 INDICATIONS: 79-year-old female with history of a sigmoid colectomy done six days ago and concern for possible fis fletcher. COMPARISON: Prior CT of the abdomen and pelvis dated 12/31/19. Since the comparison examination there has been a partial sigmoidectomy and primarily anastomosis in the lower abdomen and upper pelvis. Small amount of free fluid is present within the pelvis. The prev iously seen sigmoid colon- vaginal fistula has been intervally resected. There is no contrast opacifi cation seen within the vagina or bladder. There is an anastomotic surgical staple line and colon wall that protrudes slightly posterior to the primary anastomotic suture ring involving the distal sigmoi d colon that contains some rectal contrast and a few scattered diverticula without evidence of extrav asation and may reflect redundancy of the sigmoid wall. This is best seen on image 115 of the sagitta l series and image 64 of the axial series. There are scattered diverticula involving the residual sigmoid colon without evidence of active diver ticulitis. Small bowel is of normal caliber. There is a tiny left and small right pleural effusion with mild cardiomegaly. There is mild bibasilar atelectasis, right greater than left. There is a stable small right hepatic lobe cyst. There is a sm all hiatal hernia. There is a stable right adrenal adenoma. Left adrenal gland, pancreas and spleen a re normal appearing. The kidneys are normal appearing. There are moderate calcifications involving the abdominal and pelvic vasculature. There is scattered degenerative and osteoarthritic change. IMPRESSION: 1. Interval resection of the previously seen colovaginal fistula. No recurrent fistula or residu al fistula is evident. 2. Small contrast filled outpouching along the posterior aspect of the primary colonic anastomos is within the lower pelvis is likely related to sigmoid wall redundancy. There is no overt evidence t o suggest free spill. 3. Mild presacral and peripelvic fluid is likely postsurgical in nature. 4. Small bilateral pleural effusions and cardiomegaly. 5. Stable right hepatic lobe cyst and right adrenal adenoma. 6. Small hiatal hernia. 7. Other chronic findings as above. POS: BH
--- NOTE | 2020-03-18 14:21 | PDOC.EVN ---
Event Note - Event Note Event Note: CT looks okay. No evidence of leak or abscess. Will advance to fulls.
[2020-03-18] MEDS ORDERED: Sodium Chloride 0.9% 500 ML IV SCH (14:30)
[2020-03-19] MEDS: Dextrose 5 %-0.45 % NaCl 1,000 ML IV SCH ×3 (03:54→19:18)
[2020-03-19] MEDS: fentaNYL Citrate/PF 2,000 MCG in Sodium Chloride 0.9% 60 ML IV PRN (06:01)
[2020-03-19] MEDS: Famotidine 20 MG TAB PO SCH (09:40)
[2020-03-19] MEDS: Simethicone Chewable 80 MG TAB PO SCH ×4 (09:40→21:02)
[2020-03-19] MEDS: Torsemide 20 MG TAB PO SCH (09:46)
[2020-03-19] MEDS: OLMESARTAN 5 MG TABLET PO SCH ×2 (09:46→21:02)
[2020-03-19] MEDS: Famotidine/PF 20 mg/2ml Vial SLOW IVP SCH (09:49)
[2020-03-19] MEDS: Enoxaparin Sodium 40 MG/0.4 ML SYRINGE SC SCH (10:39)
[2020-03-19] MEDS ORDERED: HYDROcodone/Acetaminophen 7.5/325 mg Tablet PO PRN ×2 (10:57)
[2020-03-19] MEDS ORDERED: Acetaminophen 325 MG TAB PO PRN (10:57)
[2020-03-19] MEDS ORDERED: traMADol HCl 50 MG TAB PO PRN ×4 (10:57→11:24)
[2020-03-19] MEDS ORDERED: HYDROcodone/Acetaminophen 5/325 mg Tablet PO PRN (11:23)
[2020-03-19] MEDS: HYDROcodone/Acetaminophen 5/325 mg Tablet PO PRN ×2 (11:30→18:05)
--- NOTE | 2020-03-19 14:48 | PDOC.GSPN ---
Surgery Progress Note: Subj - Subjective Narrative: Patient is feeling little better. She is still having occasional crampy pain which is periumbilical but this feels better when she gets up and walks. She also has periods of time when she is pain-free. She is still passing gas and has no nausea. She had a brown liquid stool before going down to CT yesterday and a green liquid stool while there. She is tolerating full liquids. Afebrile with normal vital signs. No tachycardia since yesterday. Abdomen is soft with minimal periincisional tenderness. It is still distended but has normal bowel sounds. Assessment/plan: Slowly improving status post sigmoid colectomy and repair of colovaginal fistula. I am going to advance her diet to GI soft and put her on oral medications. The pain service states that she has not been using her CUSTOMER ENGINEER very frequently so I am hopeful that oral medications will control her pain better since they last longer. She may be ready for discharge by tomorrow if she tolerates all this. Surgery Progress Note: Obj - Vital signs Vital signs: Vital Signs - Most Recent Temp Pulse Resp BP Pulse Ox 98.2 F 84 16 131/74 94 L 03/19/20 11:28 03/19/20 11:28 03/19/20 11:28 03/19/20 11:28 03/19/20 11:28 Surgery Progress Note: Results - Labs Result Diagrams: 03/18/20 08:50 03/18/20 08:50 Lab results: Laboratory Results - last 12 hr 03/19/20 03/19/20 03/19/20 00:10 06:00 11:38 POC Glucose 124 H 122 H 132 H
[2020-03-20] MEDS: Torsemide 20 MG TAB PO SCH (08:28)
[2020-03-20] MEDS: Enoxaparin Sodium 40 MG/0.4 ML SYRINGE SC SCH (08:28)
[2020-03-20] MEDS: Simethicone Chewable 80 MG TAB PO SCH (08:28)
[2020-03-20] MEDS: Famotidine 20 MG TAB PO SCH (08:28)
[2020-03-20] MEDS: HYDROcodone/Acetaminophen 5/325 mg Tablet PO PRN (08:29)
[2020-03-20] MEDS: OLMESARTAN 5 MG TABLET PO SCH (08:29)
[2020-03-20] MEDS: Famotidine/PF 20 mg/2ml Vial SLOW IVP SCH (08:32)
[2020-03-20 11:30] VITALS: BP 127/72; TEMP 97.7
[2020-03-20] MEDS ORDERED: Docusate 100 MG CAP PO SCH (21:00)
--- NOTE | 2020-03-21 00:18 | DIS ---
DATE OF ADMISSION: 03/12/2020 DATE OF DISCHARGE: 03/20/2020 FINAL DIAGNOSES: 1. Colovaginal fistula. 2. Atrial fibrillation. 3. Chronic obstructive pulmonary disease. 4. Diabetes mellitus. 5. Chronic constipation. 6. Pandiverticulosis. PROCEDURES PERFORMED: Laparoscopic sigmoid colectomy and repair of colovaginal fistula on 03/12/2020. HOSPITAL COURSE: Ms. 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 She had a normal colonoscopy about a year ago except for diverticulosis. She decided to undergo surgical repair. The patient was taken to the operating room on 03/12/2020 for this process. She was found to have fairly dense adhesions and inflammation in the area of her colovaginal fistula, but was able to undergo a sigmoid colectomy and repair of colovaginal fistula successfully. Postoperatively, she had issues with pain control with initially a lot of tenderness in the lower abdomen and then later more diffuse crampy abdominal pain. However, she was passing gas by postoperative day #2 and was tolerating a liquid diet. On postoperative day #6, she developed tachycardia, but no fever. Her white count was normal and her abdominal pain was unchanged, but the decision was made to get a CT scan with oral and rectal contrast to rule out abscess or leak. There was no evidence of this on the CT scan and her tachycardia spontaneously resolved. It was felt that this was likely due to her underlying atrial fibrillation. She had 2 bowel movements and her diet was advanced to solid food, which she tolerated. She was switched to oral pain medications, which were much better at controlling her pain and she was able to be discharged home. She is to follow up in [facility] in 2 weeks' time. DISCHARGE MEDICATIONS: Include p.r.n. [place] and tramadol. She is to resume her home medications of albuterol, aspirin, diltiazem, glipizide, olmesartan, simvastatin, and torsemide and was also advised to take simethicone and docusate due to her lifelong chronic constipation. Job ID: [id number]
== END 2020-03-20 14:46 | disposition home or self-care (01) | DRG 330 ==
LOC: SURG A 03-12 06:42 → EDSTATUS 03-12 12:15 → SURG A 03-12 14:55
PROVIDERS: ADMIT Surgery; ATTEND Surgery
PROC: 0DBN0ZZ Excision of Sigmoid Colon, Open Approach (ICD-10-PCS; principal; 2020-03-12)
PROC: 0UQG0ZZ Repair Vagina, Open Approach (ICD-10-PCS; 2020-03-12)
DX: N82.3 Fistula of vagina to large intestine (principal); I48.20 Chronic atrial fibrillation, unspecified; K56.7 Ileus, unspecified; Z51.5 Encounter for palliative care; K59.09 Other constipation; K57.30 Diverticulosis of large intestine without perforation or abscess without bleeding; Z88.8 Allergy status to other drugs, medicaments and biological substances; I10 Essential (primary) hypertension; E78.5 Hyperlipidemia, unspecified; J44.9 Chronic obstructive pulmonary disease, unspecified; I27.20 Pulmonary hypertension, unspecified; Z79.51 Long term (current) use of inhaled steroids; Z90.49 Acquired absence of other specified parts of digestive tract; Z79.899 Other long term (current) drug therapy
CPT/HCPCS: 36415; 36416; 71046; 74177; 80048; 83036; 85025; 88307; 93005; 93010; 94640; J0694; J1650; J1885; J2001; J2250; J2270; J2370; J2405; J2704; J3010; J3480; J3490; J7620; Q9968; S0028

== ENCOUNTER 2022-12-29 18:36 | Inpatient (IN) | payer MEDICARE, BC ==
[2022-12-29] MEDS ORDERED: Ondansetron ODT 4 MG TAB SL PRN (19:45)
[2022-12-29] MEDS ORDERED: Ondansetron PF 4 MG/2 ML Vial IVP PRN ×2 (19:45→20:18)
[2022-12-29] MEDS ORDERED: Acetaminophen 325 MG TAB PO PRN ×2 (19:45→20:18)
[2022-12-29 20:08] VITALS: BMI 25.1
[2022-12-29] MEDS ORDERED: Calcium Carbonate 500 MG ChewTAB PO PRN (20:18)
[2022-12-29] MEDS ORDERED: Ondansetron ODT 4 MG TAB PO PRN (20:18)
[2022-12-29] MEDS ORDERED: Dextrose 50% Abboject 50 ML SYRINGE SLOW IVP PRN (20:18)
[2022-12-29] MEDS ORDERED: Glucagon 1 MG/ML KIT IM PRN (20:18)
[2022-12-29] MEDS ORDERED: HumaLOG 300 UNITS/3 ML VIAL SC PRN ×2 (20:18)
[2022-12-29] MEDS ORDERED: Dextrose 5% in Water 1,000 ML IV PRN (20:18)
[2022-12-29] MEDS ORDERED: Albuterol 200 PUFF (6.7GM INHALER) INH PRN (20:27)
[2022-12-29] MEDS ORDERED: Ipratropium/Albuterol 3 ML NEB NEB PRN (20:47)
[2022-12-29] MEDS ORDERED: Torsemide 20 MG TAB PO SCH (21:00)
[2022-12-29] MEDS: Atorvastatin Calcium 20 MG TAB PO SCH (21:01)
[2022-12-29] MEDS: Metoprolol Tartrate 25 MG TAB PO SCH (21:01)
[2022-12-30 05:27] LABS: #Eosinphils 0.1 thou/uL (0.0-0.7); #Monocytes 0.8 thou/uL (0.11-0.59); #Neutrophils 4.5 thou/uL (1.40-6.50); %Basophils 0.5 % (0.0-1.0); %Eosinophils 1.2 % (0.0-10.0); %Lymphocytes 17.9 % (21.0-51.0); %Monocytes 11.6 % (0.0-10.0); %Neutrophils 68.5 % (42.0-75.0); Hematocrit 38.1 % (36.0-47.0); Hemoglobin 12.3 g/dL (12.0-16.0); Mean Corpuscular HGB CONC 32.3 g/dL (32.0-36.0); Mean Corpuscular Hemoglobin 31.1 pg (27.0-31.0); Mean Corpuscular Volume 96.2 fl (78.0-98.0); Mean Platelet Volume 11.1 fL (7.4-10.4); Platelet Count 148 10x3/uL (130-400); RBC Distribution Width 14.5 % (11.5-14.5); Red Blood Cell (RBC) Count 3.96 mill/uL (4.20-5.40); White Blood Cell (WBC) Count 6.5 10x3/uL (4.8-10.8)
[2022-12-30 06:02] LABS: Anion Gap 14 mmol/L (10-20); BUN (Urea Nitrogen) 24 mg/dL (9.8-20.1); Calc. Creatinine Clearance 47 mL/min (70-130); Calcium 9.1 mg/dL (7.8-10.44); Carbon Dioxide 28 mmol/L (23-31); Chloride 101 mmol/L (98-107); Estimated GFR 63; Glucose 98 mg/dL (83-110); Magnesium 1.5 mg/dL (1.6-2.6); Potassium 3.4 mmol/L (3.5-5.1); Sodium 140 mmol/L (136-145)
[2022-12-30] MEDS: Torsemide 20 MG TAB PO SCH (08:01)
[2022-12-30] MEDS: Metoprolol Tartrate 25 MG TAB PO SCH ×2 (08:02→20:02)
[2022-12-30] MEDS: Aspirin 81 mg Enteric Coated Tablet PO SCH (08:02)
[2022-12-30] MEDS: OLMESARTAN MEDOXOMIL 5 MG PO SCH (08:06)
[2022-12-30] MEDS ORDERED: Electrolyte Replacement Protocol 1 EACH FS SCH (08:45)
[2022-12-30] MEDS ORDERED: Magnesium 2 GM/50 ML(in water) 2 GM in Premix Bag 1 BAG IVPB SCH (09:15)
[2022-12-30] MEDS ORDERED: Potassium Chloride 20 MEQ TAB PO SCH (09:15)
[2022-12-30] MEDS ORDERED: Electrolyte Replacement Protocol FS PRN (09:15)
[2022-12-30] MEDS: Fish Oil 1,000 MG CAP PO SCH (10:01)
[2022-12-30 14:32] LABS: Potassium 4.2 mmol/L (3.5-5.1)
[2022-12-30] MEDS ORDERED: Digoxin 0.5 MG/2 ML AMP SLOW IVP SCH (16:00)
[2022-12-30] MEDS: Atorvastatin Calcium 20 MG TAB PO SCH (20:02)
[2022-12-31] MEDS: Digoxin 0.5 MG/2 ML AMP SLOW IVP SCH ×2 (02:23→09:28)
[2022-12-31 04:52] LABS: #Eosinphils 0.1 thou/uL (0.0-0.7); #Monocytes 0.9 thou/uL (0.11-0.59); #Neutrophils 4.1 thou/uL (1.40-6.50); %Basophils 0.5 % (0.0-1.0); %Eosinophils 2.2 % (0.0-10.0); %Lymphocytes 18.3 % (21.0-51.0); %Monocytes 13.5 % (0.0-10.0); %Neutrophils 65.3 % (42.0-75.0); Hemoglobin 12.4 g/dL (12.0-16.0); Mean Corpuscular HGB CONC 31.8 g/dL (32.0-36.0); Mean Corpuscular Hemoglobin 30.6 pg (27.0-31.0); Mean Corpuscular Volume 96.3 fl (78.0-98.0); Mean Platelet Volume 10.7 fL (7.4-10.4); Platelet Count 152 10x3/uL (130-400); RBC Distribution Width 14.2 % (11.5-14.5); Red Blood Cell (RBC) Count 4.05 mill/uL (4.20-5.40); White Blood Cell (WBC) Count 6.3 10x3/uL (4.8-10.8)
[2022-12-31 05:20] LABS: Anion Gap 14 mmol/L (10-20); BUN (Urea Nitrogen) 32 mg/dL (9.8-20.1); Calc. Creatinine Clearance 44 mL/min (70-130); Calcium 8.7 mg/dL (7.8-10.44); Carbon Dioxide 28 mmol/L (23-31); Chloride 100 mmol/L (98-107); Estimated GFR 58; Glucose 94 mg/dL (83-110); Potassium 3.8 mmol/L (3.5-5.1); Sodium 138 mmol/L (136-145)
[2022-12-31] MEDS ORDERED: Magnesium 2 GM/50 ML(in water) 2 GM in Premix Bag 1 BAG IVPB SCH (08:00)
[2022-12-31] MEDS: Torsemide 20 MG TAB PO SCH (09:26)
[2022-12-31] MEDS: Fish Oil 1,000 MG CAP PO SCH (09:26)
[2022-12-31] MEDS: Metoprolol Tartrate 25 MG TAB PO SCH (09:27)
[2022-12-31] MEDS: Aspirin 81 mg Enteric Coated Tablet PO SCH (09:27)
[2022-12-31] MEDS: OLMESARTAN MEDOXOMIL 5 MG PO SCH (09:36)
[2022-12-31 12:07] VITALS: TEMP 98
[2022-12-31 13:22] VITALS: BP 134/75
== END 2022-12-31 15:30 | disposition home or self-care (01) | DRG 280 ==
LOC: 2SW 18:45 → OBSVTOIN 12-30 14:14
PROVIDERS: ADMIT Hospitalist; ATTEND Internal Medicine
DX: I13.0 Hypertensive heart and chronic kidney disease with heart failure and stage 1 through stage 4 chronic kidney disease, or unspecified chronic kidney disease (principal); I50.33 Acute on chronic diastolic (congestive) heart failure; I21.A1 Myocardial infarction type 2; I48.20 Chronic atrial fibrillation, unspecified; E78.5 Hyperlipidemia, unspecified; Z90.710 Acquired absence of both cervix and uterus; Z98.890 Other specified postprocedural states; Z88.8 Allergy status to other drugs, medicaments and biological substances; E87.6 Hypokalemia; J44.9 Chronic obstructive pulmonary disease, unspecified; E11.51 Type 2 diabetes mellitus with diabetic peripheral angiopathy without gangrene; F03.90 Unspecified dementia, unspecified severity, without behavioral disturbance, psychotic disturbance, mood disturbance, and anxiety; Z79.899 Other long term (current) drug therapy; E11.22 Type 2 diabetes mellitus with diabetic chronic kidney disease; N18.2 Chronic kidney disease, stage 2 (mild)
CPT/HCPCS: 36415; 36416; 80048; 83735; 85025; 93798; 96374; G0378; J1160; J3475

== ENCOUNTER 2024-03-29 16:57 | Inpatient (IN) | payer MEDICARE, BC ==
[2024-03-29 17:46] VITALS: BMI 23.3
[2024-03-29] MEDS ORDERED: Ondansetron PF 4 MG/2 ML Vial IVP PRN (18:22)
[2024-03-29] MEDS ORDERED: Dextrose 5% in Water 1,000 ML IV PRN (18:22)
[2024-03-29] MEDS ORDERED: Acetaminophen 325 MG TAB PO PRN (18:22)
[2024-03-29] MEDS ORDERED: Glucagon 1 MG/ML KIT IM PRN (18:22)
[2024-03-29] MEDS ORDERED: Insulin Lispro 100 UNIT/ML 10 ML VIAL SC PRN (18:22)
[2024-03-29] MEDS ORDERED: Ondansetron ODT 4 MG TAB PO PRN (18:22)
[2024-03-29] MEDS ORDERED: Dextrose 50% Abboject 50 ML SYRINGE SLOW IVP PRN (18:22)
[2024-03-29] MEDS ORDERED: Acetaminophen 650 MG Suppository PR PRN (18:22)
[2024-03-29 19:33] LABS: Troponin I 0.033 ng/mL (< 0.028)
[2024-03-29] MEDS: Metoprolol Tartrate 50 MG TAB PO SCH (20:04)
[2024-03-29 23:51] LABS: Troponin I 0.047 ng/mL (< 0.028)
[2024-03-30 04:51] LABS: #Basophils 0.04 10x3/uL (0.0-0.2); %Basophils 0.7 % (0.0-1.0); %Eosinophils 1.4 % (0.0-10.0); %Lymphocytes 18.4 % (21.0-51.0); %Monocytes 10.1 % (0.0-10.0); %Neutrophils 69.2 % (42.0-75.0); Hematocrit 37.7 % (36.0-47.0); Hemoglobin 12.1 g/dL (12.0-16.0); Mean Corpuscular HGB CONC 32.1 g/dL (32.0-36.0); Mean Corpuscular Hemoglobin 30.4 pg (27.0-31.0); Mean Corpuscular Volume 94.7 fL (78.0-98.0); Mean Platelet Volume 10.8 fL (7.4-10.4); Platelet Count 154 10x3/uL (130-400); RBC Distribution Width 14.6 % (11.5-14.5); Red Blood Cell (RBC) Count 3.98 mill/uL (4.20-5.40)
[2024-03-30 05:08] LABS: Anion Gap 17 mmol/L (10-20); BUN (Urea Nitrogen) 27 mg/dL (9.8-20.1); Calc. Creatinine Clearance 36 mL/min (70-130); Calcium 8.9 mg/dL (7.8-10.44); Carbon Dioxide 25 mmol/L (23-31); Chloride 101 mmol/L (98-107); Estimated GFR 49; Glucose 93 mg/dL (83-110); Potassium 4.2 mmol/L (3.5-5.1); Sodium 139 mmol/L (136-145)
[2024-03-30] MEDS: Torsemide 20 MG TAB PO SCH (09:34)
[2024-03-30] MEDS: Digoxin 0.125 MG TAB PO SCH (09:34)
[2024-03-30] MEDS: Aspirin 81 mg Enteric Coated Tablet PO SCH (09:34)
[2024-03-30] MEDS: cefTRIAXone\\ROCEPHIN 1 GM in Sodium Chloride 0.9% 100 ML IVPB SCH (15:21)
[2024-03-30 16:00] VITALS: BMI 23.3
[2024-03-30] MEDS: Magnesium Oxide 400 MG TAB PO SCH (20:31)
[2024-03-30] MEDS: Atorvastatin Calcium 20 MG TAB PO SCH (20:32)
[2024-03-30] MEDS: dilTIAZem CD 120 MG CAP PO SCH (20:32)
[2024-03-30] MEDS ORDERED: Simvastatin 40 MG TAB PO SCH (21:00)
[2024-03-30] MEDS ORDERED: Non-Formulary Item 1 EACH (Magnesium Oxide [Magnesium Oxide] 400 MG Tablet) PO SCH (21:00)
[2024-03-30] MEDS ORDERED: Metoprolol Tartrate 50 MG TAB PO SCH (21:00)
[2024-03-31 15:53] VITALS: BP 134/66; TEMP 97.8
== END 2024-03-31 17:25 | disposition home or self-care (01) | DRG 309 ==
LOC: OBS 17:18 → OBSVTOIN 18:22
PROVIDERS: ADMIT Family Medicine; ATTEND Internal Medicine
DX: I48.19 Other persistent atrial fibrillation (principal); I24.89 Other forms of acute ischemic heart disease; I50.32 Chronic diastolic (congestive) heart failure; N39.0 Urinary tract infection, site not specified; J96.11 Chronic respiratory failure with hypoxia; I11.0 Hypertensive heart disease with heart failure; E78.5 Hyperlipidemia, unspecified; F03.90 Unspecified dementia, unspecified severity, without behavioral disturbance, psychotic disturbance, mood disturbance, and anxiety; E11.51 Type 2 diabetes mellitus with diabetic peripheral angiopathy without gangrene; B96.20 Unspecified Escherichia coli [E. coli] as the cause of diseases classified elsewhere; Z99.81 Dependence on supplemental oxygen; Z90.49 Acquired absence of other specified parts of digestive tract; Z90.710 Acquired absence of both cervix and uterus; Z91.011 Allergy to milk products; Z88.8 Allergy status to other drugs, medicaments and biological substances; Z88.0 Allergy status to penicillin; Z79.82 Long term (current) use of aspirin; Z79.899 Other long term (current) drug therapy; Z79.84 Long term (current) use of oral hypoglycemic drugs; Z91.148 Patient's other noncompliance with medication regimen for other reason
CPT/HCPCS: 36415; 36416; 80048; 85025; 93306; J0696

== ENCOUNTER 2024-12-09 12:57 | Inpatient (IN) | payer MEDICARE, BC ==
[~2024-12-09 12:57] MED LIST changes: -Iopamidol-370 76% 500 ML 1 ML ONE; +Iopamidol-370 76% 500 ML MDV (1 ML CHARGE) ONE
[2024-12-09 13:41] LABS: CAUTI Indications for Culture Alt mental st,lethar; Glucose, Urine (Dipstick) Normal (Negative); Leukocyte 75 Leu/uL (Negative); Protein, Urine (Dipstick) 20 mg/dL (Neg-Trace); RBC/HPF Greater than 50 HPF (0-3); Specific Gravity, Urine 1.012 (1.002-1.036)
[2024-12-09 13:47] LABS: Bacteria/HPF 1+ HPF (None Seen)
[2024-12-09 13:48] LABS: Urine Culture Reflex No No
[2024-12-09 14:10] LABS: #Basophils Less than 0.03 10x3/uL (0.0-0.2); #Eosinophils Less than 0.03 10x3/uL (0.0-0.7); #Monocytes 0.87 10x3/uL (0.11-0.59); #Neutrophils 8.27 10x3/uL (1.40-6.50); %Basophils 0.0 % (0.0-1.0); %Eosinophils 0.0 % (0.0-10.0); %Lymphocytes 2.9 % (21.0-51.0); %Monocytes 9.2 % (0.0-10.0); %Neutrophils 87.5 % (42.0-75.0); Hematocrit 36.5 % (36.0-47.0); Hemoglobin 11.5 g/dL (12.0-16.0); Mean Corpuscular Hemoglobin 30.2 pg (27.0-31.0); Mean Corpuscular Volume 95.8 fL (78.0-98.0); Platelet Count 198 10x3/uL (130-400); Red Blood Cell (RBC) Count 3.81 mill/uL (4.20-5.40); White Blood Cell (WBC) Count 9.45 10x3/uL (4.8-10.8)
[2024-12-09 14:29] LABS: ALT (SGPT) 42 U/L (Less than 34); AST (SGOT) 30 U/L (11-34); Albumin 3.2 g/dL (3.1-4.5); Alkaline Phosphatase 56 U/L (40-110); Anion Gap 16 mmol/L (10-20); BUN (Urea Nitrogen) 51 mg/dL (9.8-20.1); Bilirubin, Total 0.6 mg/dL (0.3-1.2); Calc. Creatinine Clearance 0 mL/min (70-130); Calcium 9.1 mg/dL (7.8-10.44); Carbon Dioxide 27 mmol/L (23-31); Chloride 98 mmol/L (98-107); Globulin 3.7 g/dL (2.4-3.5); Glucose 118 mg/dL (83-110); Potassium 5.2 mmol/L (3.5-5.1); Sodium 136 mmol/L (136-145)
[2024-12-09] MEDS: Bumetanide 1 MG/4 ML VIAL IVP SCH (14:30)
[2024-12-09 14:34] LABS: Troponin I 0.021 ng/mL (< 0.028)
[2024-12-09] MEDS ORDERED: Glucagon 1 MG/ML KIT IM PRN (16:00)
[2024-12-09] MEDS ORDERED: Dextrose 50% Abboject 50 ML SYRINGE SLOW IVP PRN (16:00)
[2024-12-09] MEDS ORDERED: Acetaminophen 325 MG TAB PO PRN (16:00)
[2024-12-09 17:20] VITALS: BMI 21.2
[2024-12-09 18:12] LABS: Troponin I 0.031 ng/mL (< 0.028)
[2024-12-09] MEDS: cefTRIAXone\\ROCEPHIN 1 GM in Sodium Chloride 0.9% 100 ML IVPB SCH (19:15)
[2024-12-09 20:33] LABS: Potassium 4.2 mmol/L (3.5-5.1)
[2024-12-09 20:42] LABS: Troponin I 0.028 ng/mL (< 0.028)
[2024-12-09] MEDS: Famotidine/PF 20 mg/2ml Vial SLOW IVP SCH (21:35)
[2024-12-10] MEDS: OLANZapine 10 MG VIAL IM SCH (01:13)
[2024-12-10] MEDS: Bumetanide 1 MG/4 ML VIAL IVP SCH (05:04)
[2024-12-10 05:20] LABS: Anion Gap 13 mmol/L (10-20); BUN (Urea Nitrogen) 50 mg/dL (9.8-20.1); Calc. Creatinine Clearance 36 mL/min (70-130); Calcium 8.7 mg/dL (7.8-10.44); Carbon Dioxide 33 mmol/L (23-31); Chloride 97 mmol/L (98-107); Glucose 117 mg/dL (83-110); Potassium 4.3 mmol/L (3.5-5.1); Sodium 139 mmol/L (136-145)
[2024-12-10] MEDS: Nitroglycerin 0.4 MG TAB (25 Tab Bottle) ONE (17:36)
[2024-12-11] MEDS: Melatonin 3 MG TAB PO PRN (21:17)
[2024-12-13 12:15] VITALS: BP 144/76; TEMP 98.1
== END 2024-12-13 16:44 | DRG 193 ==
LOC: ERS 12:57 → IMCU/EMU 15:09 → T4-B 12-12 20:33
PROVIDERS: ADMIT Internal Medicine; ATTEND Internal Medicine
PROC: 3E03329 Introduction of Other Anti-infective into Peripheral Vein, Percutaneous Approach (ICD-10-PCS; principal; 2024-12-09)
PROC: 5A09357 Assistance with Respiratory Ventilation, Less than 24 Consecutive Hours, Continuous Positive Airway Pressure (ICD-10-PCS; 2024-12-09)
DX: J18.9 Pneumonia, unspecified organism (principal); I50.33 Acute on chronic diastolic (congestive) heart failure; J96.21 Acute and chronic respiratory failure with hypoxia; I48.20 Chronic atrial fibrillation, unspecified; J44.1 Chronic obstructive pulmonary disease with (acute) exacerbation; I11.0 Hypertensive heart disease with heart failure; Z51.5 Encounter for palliative care; Z66 Do not resuscitate; E11.9 Type 2 diabetes mellitus without complications; F03.90 Unspecified dementia, unspecified severity, without behavioral disturbance, psychotic disturbance, mood disturbance, and anxiety; E87.5 Hyperkalemia; I27.20 Pulmonary hypertension, unspecified; R53.81 Other malaise; Z88.8 Allergy status to other drugs, medicaments and biological substances; Z91.011 Allergy to milk products; Z90.710 Acquired absence of both cervix and uterus; Z98.890 Other specified postprocedural states; Z98.51 Tubal ligation status; Z79.899 Other long term (current) drug therapy; Z79.82 Long term (current) use of aspirin; Z99.81 Dependence on supplemental oxygen; R41.0 Disorientation, unspecified
CPT/HCPCS: 36415; 36416; 71275; 80048; 81001; 83605; 83880; 87040; 93005; 94640; 94660; 94760; 96374; J0696; J1308; J3490; J7620; Q9967